=== PATIENT | male | born 1960 | race Caucasian/White ===

== ENCOUNTER → 2018-01-29 | Outpatient (CLI) | payer OTHER ==
[~2018-01-29] MED LIST: ASPEC325; MULT-506; OMEG10007
[2018-01-29 12:12] LABS: BASO % 0.4 %; BASO ABS # 0.03 K/uL (0-0.2); EOS % 3.7 %; EOS ABS # 0.26 K/uL (0-0.5); HEMATOCRIT 43.4 % (42-52); HEMOGLOBIN 15.7 g/dL (14.0-18.0); IG# 0.01 K/uL (0.00-0.02); LYMPH % 25.5 %; LYMPH ABS # 1.77 K/uL (1.2-3.4); MEAN CELL VOLUME 84.9 fL (80-100); MEAN CORPUSCULAR HEMOGLOBIN 30.7 pg (25-34); MEAN CORPUSCULAR HGB CONC 36.2 g/dl (32-36); MEAN PLATELET VOLUME 8.8 fL (7.4-10.4); MONO % 5.2 %; MONO ABS # 0.36 K/uL (0.11-0.59); NEUT % 65.1 %; NEUT ABS # 4.52 K/uL (1.4-6.5); PLATELET COUNT 361 K/uL (130-400); RED CELL DISTRIBUTION WIDTH CV 12.6 % (11.5-14.5); RED CELL DISTRIBUTION WIDTH SD 38.8 fL (36.4-46.3); WHITE BLOOD COUNT 6.95 K/uL (4.8-10.8)
[2018-01-29 16:45] LABS: ALT/SGPT 42 U/L (12-78); AST/SGOT 20 U/L (15-37); BLOOD UREA NITROGEN 24 mg/dl (7-18); CALCIUM 9.2 mg/dl (8.5-10.1); CARBON DIOXIDE 29 mmol/L (21-32); CHOLESTEROL 181 mg/dl (0-200); CREATININE 1.04 mg/dl (0.60-1.40); GLUCOSE 88 mg/dl (70-99); POTASSIUM 4.3 mmol/L (3.5-5.1); SODIUM 142 mmol/L (136-145)
[2018-01-29 16:49] LABS: ALKALINE PHOSPHATASE 80 U/L (45-117); LDL CHOLESTEROL CALCULATED 114 mg/dl; TOTAL PROTEIN 7.5 gm/dl (6.4-8.2)
== END | disposition home or self-care (01) ==
LOC: C.LABBFT 10:47
PROVIDERS: ATTEND Internal Medicine
DX: E78.00 Pure hypercholesterolemia, unspecified (principal); Z12.5 Encounter for screening for malignant neoplasm of prostate; I10 Essential (primary) hypertension

== ENCOUNTER 2019-06-19 08:31 | Inpatient (IN) ==
[2019-06-19] MEDS ORDERED: ADENOSINE IV SOLN 3 MG/ML 2 ML VIAL IV ONE ×3 (08:41→09:08)
[2019-06-19] MEDS ORDERED: SODIUM CHLORIDE 0.9% 1000ML 1,000 ML IV SCH (08:45)
[2019-06-19 08:59] LABS: Basophils # (auto) 0.02 K/uL (0-0.2); Basophils % (auto) 0.2 %; Eosinophils # (auto) 0.05 K/uL (0-0.5); Eosinophils % (auto) 0.4 %; Hematocrit (blood only) 44.5 % (42-52); Hemoglobin 15.7 g/dL (14.0-18.0); Immature Granulocytes # (auto) 0.03 K/uL (0.00-0.02); Immature Granulocytes % (auto) 0.2 %; Lymphocytes # (auto) 2.77 K/uL (1.2-3.4); Lymphocytes % (auto) 22.7 %; Mean Corpuscular Hemoglobin 30.9 pg (25-34); Mean Corpuscular Hgb Conc 35.3 g/dL (32-36); Mean Corpuscular Volume 87.6 fL (80-100); Mean Platelet Volume 9.1 fL (7.4-10.4); Monocytes # (auto) 0.85 K/uL (0.11-0.59); Neutrophils # (auto) 8.49 K/uL (1.4-6.5); Neutrophils % (auto) 69.5 %; Platelet Count 346 K/uL (130-400); RDW Coefficient of Variation 13.1 % (11.5-14.5); RDW Standard Deviation 41.8 fL (36.4-46.3); Red Blood Count 5.08 M/uL (4.7-6.1); White Blood Count 12.21 K/uL (4.8-10.8)
[2019-06-19 09:10] LABS: INR 1.1 (0.9-1.1); Partial Thromboplastin Time 25.8 Seconds (21.0-31.0); Prothrombin Time 11.1 Seconds (9.0-12.0)
[2019-06-19 09:16] LABS: BUN Creatinine Ratio 26.1 (10-20); Calcium 9.7 mg/dl (8.5-10.1); Est GFR (Non-African American) 45.8; Potassium 5.3 mmol/L (3.5-5.1)
[2019-06-19] MEDS ORDERED: dilTIAZem HCl 125 MG in DEXTROSE 5% 100 ML IV SCH (09:30)
[2019-06-19 09:35] LABS: Albumin Globulin Ratio 1.1 (0.9-2); Bilirubin,Total 1.2 mg/dl (0.2-1); Globulin 3.5 gm/dl (2.5-4.0); Thyroid Stimulating Hormone 4.2 uIu/ml (0.300-4.500); Total Protein 7.5 gm/dl (6.4-8.2); Troponin I 0.137 ng/ml (0-0.045)
[2019-06-19] MEDS ORDERED: SODIUM CHLORIDE 0.9% 1000ML 500 ML IV ONE (09:48)
--- NOTE | 2019-06-19 09:53 | XRay Report ---
XR chest 1V portable CLINICAL HISTORY: Chest Pain COMPARISON STUDY: No previous studies for comparison. FINDINGS: Lung volumes are normal. There is no pneumothorax or pleural effusion. There is no consolid ation or evidence for pulmonary edema. There is mild cardiomegaly. Patient is mildly rotated. IMPRESSION: 1. No acute cardiopulmonary findings. 2. Mild cardiomegaly. Electronically signed by: Jarad Higgins M.D. 06/19/2019 9:51 AM
[2019-06-19] MEDS ORDERED: Heparin IV Standard *NO* Bolus IV ONE (10:22)
--- NOTE | 2019-06-19 10:59 | Emergency Department Note ---
Entered by Nicole Georges acting as a scribe for Meng Groves DO History of Present Illness General Chief complaint: Chest Pain Stated complaint: HEART THROBBING- SWEATS Time Seen by Provider: 06/19/19 08:43 Source: patient History of Present Illness Onset (ago): day(s) (last night) Location: chest Pain Consistency: + other (episode) Quality: + other (tightness) Associated symptoms: + denies other symptoms (significant chest pain) and + other (racing heart rate, diaphoresis) The patient is a 58 year old male that is presenting to the Emergency Room with complaints of an episode of chest tightness with a racing heart rate and diaphoresis that started yesterday evening. He denies any significant chest pain at this time. He notes that he takes Omeprazole, Simvastatin, and Losartan regularly. The patient reports that he has had several similar episodes over the past year but denies being followed by a provider for his symptoms. He states that the first episode started after he was cleaning out chlorine from a screen from a vacuum pump. The patient reports that he has had surgery on his bilateral hands and on his ankle. 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 He states that he was able to bring himself to the ED today. Home Medications Home Medications Medication Instructions Recorded Confirmed Type aspirin 325 mg tablet 325 mg PO QAM tab 03/12/19 06/19/19 History omeprazole 20 mg capsule,delayed 20 mg PO QAM cap 03/12/19 06/19/19 History release simvastatin 40 mg tablet 40 mg PO QAM #90 tab 03/12/19 06/19/19 History losartan 25 mg PO QAM 06/19/19 06/19/19 History multivitamin 1 tab PO DAILY 06/19/19 06/19/19 History omega [id number] oil [Fish Oil] 1 cap PO QAM 06/19/19 06/19/19 History Allergies Allergy/AdvReac Type Severity Reaction Status Date / Time Penicillins Allergy Mild Verified 06/19/19 10:07 COURTNEY Inhibitors Allergy Verified 06/19/19 10:07 Past Med/Surg History Medical History Shingles (Acute) Rising PSA level (Acute) Palpitations (Acute) Hypertension (Acute) Hypercholesterolemia (Acute) Family History Other No significant family history Social History Preferred Language: Egyptian Communication Ability: Effective Beliefs That Will Affect Care: None Current Living Situation: Spouse Feels Safe at Home: Yes Smoking Status: Never smoker Hx Alcohol Use: No Hx Substance Use: No Review of Systems See HPI for pertinent positives & negatives. and A total of 10 systems reviewed and were otherwise negative Physical Exam Vital Signs Vital Signs - 24 hr 06/19/19 08:37 06/19/19 08:40 06/19/19 08:54 Sepsis Recent Fever Within 48 Hours No Sepsis Action Taken by Nursing No Action Required Pulse Rate 205 H 203 H Pulse Rate from SpO2 Sensor 201 H Respiratory Rate 19 11 L Respiratory Effort / Characteristics Non-Labored Spontaneous Respiratory Depth Normal Blood Pressure 111/76 106/75 Blood Pressure Mean 87 85 Blood Pressure Position Sitting Pulse Oximetry 98 98 97 Oxygen Delivery Method Room Air Room Air Nasal Cannula Oxygen Flow Rate 100 06/19/19 08:55 06/19/19 09:01 06/19/19 09:15 Sepsis Recent Fever Within 48 Hours Sepsis Action Taken by Nursing Pulse Rate 205 H 206 H Pulse Rate from SpO2 Sensor 205 H 203 H Respiratory Rate 12 15 Respiratory Effort / Characteristics Respiratory Depth Blood Pressure 116/67 102/77 Blood Pressure Mean 83 85 Blood Pressure Position Pulse Oximetry 100 99 99 Oxygen Delivery Method Nasal Cannula Nasal Cannula Nasal Cannula Oxygen Flow Rate 2 2 2 06/19/19 09:30 06/19/19 09:46 06/19/19 10:03 Sepsis Recent Fever Within 48 Hours Sepsis Action Taken by Nursing Pulse Rate 208 H 209 H 111 H Pulse Rate from SpO2 Sensor 207 H Respiratory Rate 12 20 18 Respiratory Effort / Characteristics Respiratory Depth Blood Pressure 108/75 106/79 123/97 Blood Pressure Mean 86 88 105 Blood Pressure Position Pulse Oximetry 98 98 95 Oxygen Delivery Method Nasal Cannula Nasal Cannula Nasal Cannula Oxygen Flow Rate 2 06/19/19 10:14 06/19/19 10:16 06/19/19 10:30 Sepsis Recent Fever Within 48 Hours Sepsis Action Taken by Nursing Pulse Rate 115 H 115 H 117 H Pulse Rate from SpO2 Sensor 116 H 115 H Respiratory Rate 24 21 22 Respiratory Effort / Characteristics Respiratory Depth Blood Pressure 116/88 119/80 Blood Pressure Mean 97 93 Blood Pressure Position Pulse Oximetry 96 97 Oxygen Delivery Method Room Air Oxygen Flow Rate 06/19/19 10:35 06/19/19 10:45 06/19/19 11:00 Sepsis Recent Fever Within 48 Hours Sepsis Action Taken by Nursing Pulse Rate 118 H 118 H Pulse Rate from SpO2 Sensor Respiratory Rate 18 21 Respiratory Effort / Characteristics Respiratory Depth Blood Pressure 117/84 Blood Pressure Mean 95 Blood Pressure Position Pulse Oximetry Oxygen Delivery Method Room Air Oxygen Flow Rate GENERAL: Patient is awake and alert. Patient is anxious appearing but seems comfortable. EYES: The conjunctivae are clear. The pupils are round and reactive. EARS, NOSE, MOUTH AND THROAT: The nose is without any evidence of any deformity. Mucous membranes are moist.Tongue is midline NECK: The neck is nontender and supple. RESPIRATORY: Normal respiratory effort is noted. There is no evidence of wheezing rhonchi or rales to auscultation. CARDIOVASCULAR: Tachycardic rate and regular rhythm noted. No definite murmur noted. GASTROINTESTINAL: The abdomen is soft. Bowel sounds are present in all quadrants. Abdomen is nontender. MUSCULOSKELETAL/EXTREMITIES: There is no evidence of gross deformity. Full range of motion is noted in the hips and shoulders. SKIN: There is no obvious evidence of any rash. There are no petechiae, pallor or cyanosis noted. NEUROLOGIC: Patient is awake alert and oriented x3. Course 0842:The patient was evaluated in room B01. A complete history and physical ex amination was performed. Multiple attempts were made for modified Valsalva without relief of his SVT. The patient was given Adenosine without a significant drop in his heart rate. 1013: I discussed the patient's case with Dr. Anton [facility], who recommended that the patient be kept for observation in the hospital and that he be started on a Heparin drip. 1031: I discussed the patient's case with Dr. Aliya Pollard [facility], who will evaluate the patient for further management and care. 1035: Upon reevaluation, the patient is resting comfortably. I discussed laboratory and radiographic results with the patient. He verbalized agreement of the treatment plan. The patient will be evaluated for further management and care. Consultations Consultation #1: I discussed the patient's case with Dr. Anton [facility], who recommended that the patient be kept for observation in the hospital and that he be started on a Heparin drip. Time: 10:13 Consultation #2: I discussed the patient's case with Dr. Aliya Pollard [facility], who will evaluate the patient for further management and care. Time: 10:31 Administered Medications Atorvastatin Calcium (Lipitor) 40 mg PO QAM LEO Stop: 07/19/19 11:14 Last Admin: 06/19/19 13:54 Dose: 40 mg Documented by: [id number] Diltiazem HCl 125 mg/ Dextrose 125 mls @ 0 mls/hr IV .Q0M LEO; Protocol Stop: 07/19/19 09:29 Last Titration: 06/19/19 18:42 Dose: 0 mg/hr, 0 mls/hr Documented by: [id number] Cosigned by: [id number] Titration: 06/19/19 14:56 Dose: 5 mg/hr, 5 mls/hr Documented by: [id number] Cosigned by: [id number] Titration: 06/19/19 11:30 Dose: 5 mg/hr, 5 mls/hr Documented by: [id number] Titration: 06/19/19 10:01 Dose: 15 mg/hr, 15 mls/hr Documented by: [id number] Titration: 06/19/19 09:50 Dose: 10 mg/hr, 10 mls/hr Documented by: [id number] Admin: 06/19/19 09:28 Dose: 5 mg/hr, 5 mls/hr Documented by: [id number] Cosigned by: [id number] Heparin Sodium/Dextrose (Heparin Sodium/Dextrose) 25,000 units in 500 mls @ 39 mls/hr IV .[id number] LEO; Protocol Stop: 07/19/19 10:29 Last Titration: 06/20/19 02:13 Dose: 1,750 units/hr, 35 mls/hr Documented by: [id number] Cosigned by: [id number] Titration: 06/20/19 00:58 Dose: 0 units/hr, 0 mls/hr Documented by: [id number] Cosigned by: [id number] Admin: 06/20/19 00:55 Dose: 39 units/hr, 0.8 mls/hr Documented by: [id number] Cosigned by: [id number] Titration: 06/20/19 00:54 Dose: 0 units/hr, 0 mls/hr Documented by: [id number] Cosigned by: [id number] Titration: 06/19/19 19:00 Dose: 1,950 units/hr, 39 mls/hr Documented by: [id number] Cosigned by: [id number] Titration: 06/19/19 17:58 Dose: 1,950 units/hr, 39 mls/hr Documented by: [id number] Cosigned by: [id number] Titration: 06/19/19 14:55 Dose: 1,600 units/hr, 32 mls/hr Documented by: [id number] Cosigned by: [id number] Admin: 06/19/19 11:05 Dose: 1,600 units/hr, 32 mls/hr Documented by: [id number] Cosigned by: [id number] Sodium Chloride (Nss 1000ml) 1,000 mls @ 75 mls/hr IV .[id number] [facility] Stop: 07/19/19 11:14 Last Admin: 06/20/19 01:55 Dose: 75 mls/hr Documented by: [id number] Infusion: 06/20/19 01:55 Dose: 0 mls/hr Documented by: [id number] Admin: 06/19/19 13:58 Dose: 75 mls/hr Documented by: [id number] Metoprolol Tartrate (Lopressor) 25 mg PO BID [facility] Stop: 07/19/19 11:14 Last Admin: 06/19/19 13:54 Dose: 25 mg Documented by: [id number] Pantoprazole Sodium (Protonix) 40 mg PO DAILY [facility] Stop: 07/19/19 11:59 Last Admin: 06/19/19 13:55 Dose: 40 mg Documented by: [id number] Discontinued Medications Adenosine (Adenosine) Confirm Administered Dose 18 mg IV .STK-MED ONE Stop: 06/19/19 08:42 Last Admin: 06/19/19 08:53 Dose: 18 mg Documented by: [id number] Adenosine (Adenosine) Confirm Administered Dose 12 mg IV .STK-MED ONE Stop: 06/19/19 09:04 Last Admin: 06/19/19 09:05 Dose: 12 mg Documented by: [id number] Adenosine (Adenosine) Confirm Administered Dose 24 mg IV .STK-MED ONE Stop: 06/19/19 09:09 Last Admin: 06/19/19 09:11 Dose: 24 mg Documented by: [id number] Heparin Sodium/Dextrose () 1 ea IV ONE ONE; Protocol Stop: 06/19/19 10:23 Last Admin: 06/19/19 13:58 Dose: 1 ea Documented by: [id number] Sodium Chloride (Nss 1000ml) 1,000 mls @ 999 mls/hr IV .Q1H1M LEO Stop: 06/19/19 09:45 Last Infusion: 06/19/19 09:41 Dose: 0 mls/hr Documented by: [id number] Admin: 06/19/19 08:40 Dose: 999 mls/hr Documented by: [id number] Sodium Chloride (Nss 1000ml) 500 mls @ 999 mls/hr IV .Q31M ONE Stop: 06/19/19 10:18 Last Infusion: 06/19/19 10:21 Dose: 0 mls/hr Documented by: [id number] Admin: 06/19/19 09:50 Dose: 999 mls/hr Documented by: [id number] Heparin Sodium (Porcine) 7,000 (units/ Syringe) 7 mls @ 10 mls/min IV 1830 ONE Stop: 06/19/19 18:31 Last Admin: 06/19/19 18:41 Dose: 10 mls/min Documented by: [id number] Cosigned by: [id number] Metoprolol Tartrate (Lopressor) 12.5 mg PO 2100 ONE Stop: 06/19/19 21:01 Last Admin: 06/19/19 20:25 Dose: 12.5 mg Documented by: [id number] Medical Decision Making Differential Diagnosis Differential diagnosis: Etiologies such as cardiac ischemia, aortic dissection, pulmonary embolism, p neumonia, pneumothorax, musculoskeletal, infections, pericarditis, myocarditis, esophageal rupture, gastrointestinal, as well as others were entertained. Medical Records Attestation: I reviewed the patient's medical records. Home Medications Current Medication List: was personally reviewed by me Laboratory Data Attestation: I reviewed the patient's lab results. Result diagrams: 06/20/19 05:19 06/20/19 05:19 Lab Results 06/19/19 06/19/19 06/19/19 Range/Units 09:45 09:45 09:45 WBC 12.21 H (4.8-10.8) K/uL RBC 5.08 (4.7-6.1) M/uL Hgb 15.7 (14.0-18.0) g/dL Hct 44.5 (42-52) % MCV 87.6 (80-100) fL MCH 30.9 (25-34) pg MCHC 35.3 (32-36) g/dL RDW Std Deviation 41.8 (36.4-46.3) fL RDW Coeff of Silver 13.1 (11.5-14.5) % Plt Count 346 (130-400) K/uL MPV 9.1 (7.4-10.4) fL Immature Gran % (Auto) 0.2 % Neut % (Auto) 69.5 % Lymph % (Auto) 22.7 % Gray % (Auto) 7.0 % Eos % (Auto) 0.4 % Baso % (Auto) 0.2 % Immature Gran # (Auto) 0.03 H (0.00-0.02) K/uL Neut # (Auto) 8.49 H (1.4-6.5) K/uL Lymph # (Auto) 2.77 (1.2-3.4) K/uL Gray # (Auto) 0.85 H (0.11-0.59) K/uL Eos # (Auto) 0.05 (0-0.5) K/uL Baso # (Auto) 0.02 (0-0.2) K/uL PT 11.1 (9.0-12.0) Seconds INR 1.1 (0.9-1.1) APTT 25.8 (21.0-31.0) Seconds PTT Ratio 1.0 Sodium 139 (136-145) mmol/L Potassium 5.3 H (3.5-5.1) mmol/L Chloride 106 (98-107) mmol/L Carbon Dioxide 25 (21-32) mmol/L Anion Gap 8.0 (3-11) BUN 43 H (7-18) mg/dl Creatinine 1.63 H (0.6-1.4) mg/dl Est Cr Clr Drug Dosing 63.0 ml/min Est GFR ( Amer) 53.0 Est GFR (Non-Af Amer) 45.8 BUN/Creatinine Ratio 26.1 H (10-20) Glucose 141 H (70-99) mg/dl Estimat Average Glucose mg/dl Hemoglobin A1c (4.5-5.6) % Calcium 9.7 (8.5-10.1) mg/dl Magnesium (1.8-2.4) mg/dl Total Bilirubin 1.2 H (0.2-1) mg/dl AST 34 (15-37) U/L ALT 62 (12-78) U/L Alkaline Phosphatase 79 (45-117) U/L Troponin I 0.137 H* (0-0.045) ng/ml Total Protein 7.5 (6.4-8.2) gm/dl Albumin 4.0 (3.4-5.0) gm/dl Globulin 3.5 (2.5-4.0) gm/dl Albumin/Globulin Ratio 1.1 (0.9-2) Lipase 111 (73-393) U/L TSH 4.200 (0.300-4.500) uIu/ml 06/19/19 06/19/19 Range/Units 09:45 09:45 WBC (4.8-10.8) K/uL RBC (4.7-6.1) M/uL Hgb (14.0-18.0) g/dL Hct (42-52) % MCV (80-100) fL MCH (25-34) pg MCHC (32-36) g/dL RDW Std Deviation (36.4-46.3) fL RDW Coeff of Silver (11.5-14.5) % Plt Count (130-400) K/uL MPV (7.4-10.4) fL Immature Gran % (Auto) % Neut % (Auto) % Lymph % (Auto) % Gray % (Auto) % Eos % (Auto) % Baso % (Auto) % Immature Gran # (Auto) (0.00-0.02) K/uL Neut # (Auto) (1.4-6.5) K/uL Lymph # (Auto) (1.2-3.4) K/uL Gray # (Auto) (0.11-0.59) K/uL Eos # (Auto) (0-0.5) K/uL Baso # (Auto) (0-0.2) K/uL PT (9.0-12.0) Seconds INR (0.9-1.1) APTT (21.0-31.0) Seconds PTT Ratio Sodium (136-145) mmol/L Potassium (3.5-5.1) mmol/L Chloride (98-107) mmol/L Carbon Dioxide (21-32) mmol/L Anion Gap (3-11) BUN (7-18) mg/dl Creatinine (0.6-1.4) mg/dl Est Cr Clr Drug Dosing ml/min Est GFR ( Amer) Est GFR (Non-Af Amer) BUN/Creatinine Ratio (10-20) Glucose (70-99) mg/dl Estimat Average Glucose 117 mg/dl Hemoglobin A1c 5.7 H (4.5-5.6) % Calcium (8.5-10.1) mg/dl Magnesium 2.5 H (1.8-2.4) mg/dl Total Bilirubin (0.2-1) mg/dl AST (15-37) U/L ALT (12-78) U/L Alkaline Phosphatase (45-117) U/L Troponin I (0-0.045) ng/ml Total Protein (6.4-8.2) gm/dl Albumin (3.4-5.0) gm/dl Globulin (2.5-4.0) gm/dl Albumin/Globulin Ratio (0.9-2) Lipase (73-393) U/L TSH (0.300-4.500) uIu/ml Imaging Data Radiologist's Impression: Radiology results as stated below per my review and the radiologist's interpretation: XR chest 1V portable CLINICAL HISTORY: Chest Pain COMPARISON STUDY: No previous studies for comparison. FINDINGS: Lung volumes are normal. There is no pneumothorax or pleural effusion. There is no consolidation or evidence for pulmonary edema. There is mild cardiomegaly. Patient is mildly rotated. IMPRESSION: 1. No acute cardiopulmonary findings. 2. Mild cardiomegaly. Electronically signed by: Jarad Higgins M.D. 06/19/2019 9:51 AM ECG Data Attestation: I personally reviewed and interpreted this ECG as follows: Indication: chest pain Rate (beats per minute): 208 Rhythm: sinus tachycardia (narrow complex) Findings: + other (low voltage throughout) and + ST depression (Inferior, lateral) Comparison ECG Date: from (06/26/06) Change: the following changes noted (ST depressions are new) Additional Comments: REPEAT EKG: Atrial flutter at a rate of [address] depressions persist from earlier EKG. Repeat EKG: Sinus rhythm at 72 bpm. PVCs were noted. Anterior and lateral T wave inversions with ST segment depressions noted. Sinus rhythm has replaced rapid atrial flutter compared to earlier tracing. Ischemic changes still persist. Blood Pressure Blood Pressure Findings: Elevated blood pressure Blood Pressure Disposition: further management by hospitalist OSWALDO Narrative The patient is a 58-year-old male who presented to the emergency department for an evaluation of chest heaviness and palpitations. The patient was found to be in narrow complex tachycardia at approximately 200 bpm. The patient initially was treated with IV fluids and Valsalva maneuver. This did not resolve the narrow complex tachycardia. The patient was further treated with IV fluids. The patient was finally treated with multiple doses of IV adenosine. On the final dose of adenosine which was 24 mg he did break to what appeared to be a atrial fibrillation/flutter pattern. He also had multiple PVCs at that time. After this the patient was started on a Cardizem drip. His rate improved significantly but he continued to have ischemic changes on EKG. He also had an elevated troponin. I discussed the patient's laboratory and radiographic studies with him. He was feeling much better. I discussed his case with the on-call [facility] fishery biologist. The patient was started on a heparin drip as well as a Cardizem drip. I discussed his case with the on-call [facility] hospitalist group. They have agreed to evaluate the patient in the emergency department for further management disposition. The patient was reevaluated multiple times. Impression & Plan Atrial flutter with rapid ventricular response, Elevated troponin, Acute kidney injury, Abnormal ECG Critical Care Time Critical Care Time: Yes Total Critical Care Time: 60 I have personally spent 60 minutes of critical care time in the direct ma nagement of this patient. This includes bedside care, interpretation of diagnostic studies, and testing, discussion with consultants, patient, and family members, and other required patient management activities. This 60 minutes is in excess of all separately billable procedures. Discharge Plan Visit Data *Final* Discharge Date/Time: 06/19/19 12:54 Chief Complaint: Chest Pain Stated Complaint: HEART THROBBING- SWEATS ED Provider: Meng Groves Discharge Problem: Atrial flutter with rapid ventricular response, Elevated troponin, Acute kidney injury, Abnormal ECG Patient Disposition: Home - Self-Care Discharge Instructions Interventions: ED Discharge Assessment Last Done: 06/19/19 12:54 The jaswantibe's documentation has been prepared under my direction and personally reviewed by me in its entirety. I confirm that the note above accurately refle cts all work, treatment, procedures, and medical decision making performed by me.
[2019-06-19] MEDS: HEPARIN SODIUM/DEXTROSE 25,000 UNITS/500 ML BAG IV SCH (11:05)
[2019-06-19] MEDS ORDERED: POLYETHYLENE (MIRALAX) 17 GM PACK PO PRN (11:07)
[2019-06-19] MEDS ORDERED: MAGNESIUM HYDROXIDE SUSP 30 ML UDC PO PRN (11:07)
[2019-06-19] MEDS ORDERED: ZOLPIDEM TARTRATE 5 MG TAB PO PRN (11:07)
[2019-06-19] MEDS ORDERED: ALUMINUM/MAGNESIUM SUSP 30 ML UDC PO PRN (11:07)
[2019-06-19] MEDS ORDERED: ACETAMINOPHEN 325 MG TAB PO PRN (11:07)
[2019-06-19] MEDS ORDERED: NITROGLYCERIN SL 0.4 MG/TAB TAB SL PRN (11:07)
[2019-06-19] MEDS ORDERED: HEPARIN SODIUM/DEXTROSE 25,000 UNITS/500 ML BAG IV SCH (11:15)
--- NOTE | 2019-06-19 11:31 | History & Physical Report ---
Date of Service June 19, 2019 Assessment & Plan (1) Atrial flutter with rapid ventricular response: Admit patient to PCU Vitals per protocol Continue Cardizem drip Lopressor 25 mg p.o. twice daily, also losartan will be held due to acute kidney injury Order 2D echo Due to his body habitus and his consistent story obstructive sleep apnea, will order nocturnal pulse ox while he is at the hospital in room air, patient also was instructed to do a sleep study as an outpatient We will check lipid panel and hemoglobin A1c to stratify his risk factors Giving his very high conduction rate very high rhythm on admissions with a heart rate more than 200 bpm that affected his kidney and possible his liver, suggest more conservative management by keeping him until at least Friday where he can be seen by EP and possibly have ablation done prior to discharge Consult silk weaver Dr. Hopkins kindly came and evaluated the patient, recommended consultation for EP for possible ablation (2) Elevated troponin: Likely demand ischemia Since he will be on heparin drip, will hold aspirin for now We will order serial troponin Coronary artery disease is suspected he can restart aspirin again. He already took 1 baby aspirin for today (3) Acute kidney injury: Likely secondary to lack of perfusion, Hold losartan Normal saline at 75 cc/h Repeat renal function in a.m. Repeat potassium level at 2 PM as it was borderline high (4) Hypertension: Used to be on losartan, given his acute kidney injury and elevated potassium hold losartan Started him on Lopressor 25 mg twice daily first dose now (5) Hypercholesterolemia: He was on simvastatin that interacts with Cardizem Ordered lipids panel Switch simvastatin to Lipitor Discussed with patient History of Present Illness 58 years old man with past medical history of dyslipidemia, hypertension and obesity presented to the hospital with acute onset palpitation, chest tightness, diaphoresis associated with shortness of breath that happened last night. Patient said that for the last 3 to 4 months he has been having intermittent episodes of palpitation associated with chest tightness and shortness of breath usually lasts for 1 or 2 hours and then goes away. He never tried to seek medical attention for. He has a strong family history of heart disease from his father's side. 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 On arrival to the ED today because his palpitation lasted longer than usual was found to have a heart rate of 200 irregular irregularity, failed to control with adenosine and then finally improved with the Cardizem drip. EKG after lowering the heart rate showed atrial flutter with variable AV block and some ST depressions. His troponin was 0.13, creatinine jumped from baseline normal to 1.6. Currently his symptoms all resolved after lowering his heart rate, patient will be admitted for further evaluation and management Primary Care Provider: Bam Guerrier MD Allergies Allergy/AdvReac Type Severity Reaction Status Date / Time Penicillins Allergy Mild Verified 06/19/19 10:07 COURTNEY Inhibitors Allergy Verified 06/19/19 10:07 Home Medications Home Medications Medication Instructions Recorded Confirmed Type aspirin 325 mg tablet 325 mg PO QAM tab 03/12/19 06/19/19 History omeprazole 20 mg capsule,delayed 20 mg PO QAM cap 03/12/19 06/19/19 History release simvastatin 40 mg tablet 40 mg PO QAM #90 tab 03/12/19 06/19/19 History losartan 25 mg PO QAM 06/19/19 06/19/19 History multivitamin 1 tab PO DAILY 06/19/19 06/19/19 History omega 6-ndt-fvd-fish oil [Fish Oil] 1 cap PO QAM 06/19/19 06/19/19 History Past Med/Surg History Medical History Shingles (Acute) Rising PSA level (Acute) Palpitations (Acute) Hypertension (Acute) Hypercholesterolemia (Acute) Family History Other No significant family history Social History Preferred Language: Estonian Communication Ability: Effective Beliefs That Will Affect Care: None Current Living Situation: Spouse Other Information That Helps Us Care for You: No Feels Safe at Home: Yes Safety Concerns: Feels Safe At This Time Smoking Status: Never smoker Hx Alcohol Use: No Hx Substance Use: No Review of Systems Review of Systems: Review of system Constitutional: No fever / no chills / no sweats /after if the episodes of palpitation he gets severely fatigued and weak Eyes: no blurring of vision / no eye pain / no discharge / no redness ENT: no hearing loss / no epistaxis /no swallowing problems Respiratory: no cough / no wheezing / no SOB / no hemoptysis Cardiovascular: Chest tightness or palpitation Abdomen: no pain / no nausea / no vomiting / no constipation Musculoskeletal: no joint pain / no muscle pain / no joint swelling Genitourinary: no dysuria / no incontinence / no urinary retention Neurologic: no focal weakness / no numbness/tingling / no ataxia Psychiatric: no depression symptoms / no anxiety / no insomnia Endocrine: no excessive thirst / no excessive urination Hematologic: no abnormal bleeding / no bruising / no LN swelling Skin: No rash / no pallor Physical Exam Physical Exam: Physical examination General patient is obese appears to be comfortable, not in acute distress HEENT: Atraumatic , normocephalic /no jaundice /no pallor /anicteric /no dry mucous membrane /normal external ear inspection Neck: Supple /no swelling /central trach Heart: irregular irregularity/no gallop /no rub /no murmur Lungs: Clear to auscultation bilaterally/normal chest with expansion/no rhonchi/no rales/no wheezing/no use of accessory muscles of respiration Abdomen: Soft/nontender/no guarding/no rebound/no organomegaly/no pulsatile mass Musculoskeletal: No swelling/no edema/no tenderness/normal range of motion Neuro exam: Awake alert oriented 3/cranial nerves II through XII appear to be intact/sensation intact/moves all extremities/no abnormal movements Psychiatric evaluation: No depressed mood/normal affect Skin: No rash on exposed skin area/no erythema Extremity: Normal pulse/no pitting edema/no clubbing or cyanosis Endocrine/lymphatic: No obvious lymphadenopathy /no lymphedema Results & Data Vital Signs (Past 12 Hours) Vital Signs Pulse Resp BP Pulse Ox 06/19/19 10:14 115 H 24 116/88 96 06/19/19 10:03 111 H 18 123/97 95 06/19/19 09:46 209 H 20 106/79 98 06/19/19 09:30 208 H 12 108/75 98 06/19/19 09:15 206 H 15 102/77 99 06/19/19 09:01 205 H 12 116/67 99 06/19/19 08:55 100 06/19/19 08:54 203 H 11 L 106/75 97 06/19/19 08:40 98 06/19/19 08:37 205 H 19 111/76 98 Code Status & VTE Plan VTE Prophylaxis Plan VTE Prophylaxis will be ordered: No PG Care Time/CCT Total # of Minutes Spent Total Time Spent with Patient: 35 minutes total time spent is greater than 50% in coordination of care (as documented) at patient's floor/unit and/or counseling patient/family discussion of care with nursing staff
[2019-06-19 11:55] LABS: Estimated Average Glucose 117 mg/dl; Hemoglobin A1C 5.7 % (4.5-5.6)
[2019-06-19] MEDS: METOPROLOL TARTRATE 25 MG TAB PO SCH (13:54)
[2019-06-19] MEDS: ATORVASTATIN 40 MG TAB PO SCH (13:54)
[2019-06-19] MEDS: PANTOprazole 40 MG TAB PO SCH (13:55)
[2019-06-19] MEDS: SODIUM CHLORIDE 0.9% 1000ML 1,000 ML IV SCH (13:58)
--- NOTE | 2019-06-19 14:24 | Cardiology Consultation ---
Date of Consultation June 19, 2019 Assessment & Plan (1) Atrial flutter with rapid ventricular response: Has been having symptoms since January but now documented atrial flutter with rapid ventricular response, possibly 1-1 conduction with heart rates greater than 200 bpm. Currently in sinus rhythm after spontaneously resolving while on diltiazem drip. 25 mg twice daily. Can discontinue diltiazem drip while in sinus. Discussed diagnosis and treatment strategy. Would consider EP zen luation for consideration of ablation which was discussed with him today. Otherwise, would consider anti rhythmic therapy given the fact that he has recurrent episodes which appear quite distressing with very elevated heart rates demonstrated today. Agree with anticoagulation for stroke risk reduction. Would consider Eliquis on discharge. For now, he is on heparin drip. (2) Elevated troponin: Likely secondary to prolonged tachyarrhythmia from demand ischemia. Trend troponins until peaked. If become significantly elevated, may pursue further evaluation. (3) Hypertension: Blood pressure adequately controlled. (4) Hypercholesterolemia: Can continue statin therapy. (5) Chest pain: Likely secondary to atrial flutter with rapid ventricular response but would still recommend trend troponin levels. He otherwise has not been experiencing exertional chest discomfort despite active lifestyle. Acute renal insufficiency: As per primary service. May be due to prolonged tachyarrhythmia. Losartan is being held by primary service. Disposition: Cardiology will continue to follow. Plan of care discussed with admitting physician, Dr. Aliya Pollard. Thank you for allowing me to participate in the care of your patient. Please call for any other questions or concerns. Sincerely, Trevor Anton M.D. History of Present Illness Reason for Consultation: Atrial flutter with RVR Requesting Physician: Dr. Aliya Pollard Attending Physician: Fito Pollard MD History of Present Illness Mr. Valenzuela is a very pleasant 58-year-old gentleman with a history significant for hypertension and dyslipidemia who presented [facility] with palpitations. He has been experiencing palpitations since January of 2019. Palpitations are described as a thumping sensation. His first episode in January was also accompanied by a drenching diaphoresis. Since then, he has mild diaphoresis with palpitations. His first episode lasted approximately 2 hours before spontaneously resolving. On average she has 1 episode per month. When palpitations subside, he feels a shocking sensation that goes down through his chest and then palpitations resolved. He typically feels wiped out after an episode. Yesterday at some point throughout the day he developed palpitations. He cannot recall the exact time has he was quite busy. Palpitations were accompanied by shortness of breath and also substernal chest tightness that persisted all night. Because of the palpitations, he was unable to sleep. When he came to the emergency department today, he was found to have a tachyarrhythmia with narrow complex. He was given IV fluids and Valsalva maneuver was attempted but narrow complex tachycardia persisted. He was then given multiple doses of intravenous adenosine. The final dose of adenosine was 24 mg which reportedly demonstrated atrial flutter. He was then placed on a diltiazem drip. His initial troponin was elevated at 0.137. Dr. Groves of the emergency departmentcontacted me via telephone. It was recommended that a heparin drip initiated at that he Re admitted. He was found to be hyperkalemic with a potassium of 5.3 and also had elevated BUN and creatinine levels compared to his baseline. When I presented to the bedside to evaluate him, he had already converted to sinus rhythm and palpitations have subsided. He was chest pain-free and was not short of breath. He has not had any recent fevers, melena, hematochezia, hematuria, edema, stroke, stroke-like symptoms, syncope, near-syncope, nausea, or vomiting. Review of systems: As above. Review of systems otherwise negative/unremarkable. Family history: Father had [place] in his 40s. Social history: Denies smoking, alcohol, or drug abuse. He lives at home with his , daughter, and 2 grandsons. He has 4 children. 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 He was unaccompanied. Allergies Allergy/AdvReac Type Severity Reaction Status Date / Time Penicillins Allergy Mild Verified 06/19/19 10:07 COURTNEY Inhibitors Allergy Verified 06/19/19 10:07 Home Medications Home Medications Medication Instructions Recorded Confirmed Type aspirin 325 mg tablet 325 mg PO QAM tab 03/12/19 06/19/19 History omeprazole 20 mg capsule,delayed 20 mg PO QAM cap 03/12/19 06/19/19 History release simvastatin 40 mg tablet 40 mg PO QAM #90 tab 03/12/19 06/19/19 History losartan 25 mg PO QAM 06/19/19 06/19/19 History multivitamin 1 tab PO DAILY 06/19/19 06/19/19 History omega 0-hae-auc-fish oil [Fish Oil] 1 cap PO QAM 06/19/19 06/19/19 History Patient History Medical History Shingles (Acute) Rising PSA level (Acute) Palpitations (Acute) Hypertension (Acute) Hypercholesterolemia (Acute) Family History Other No significant family history Social History Preferred Language: Indonesian Communication Ability: Effective Beliefs That Will Affect Care: None Current Living Situation: Spouse Feels Safe at Home: Yes Smoking Status: Never smoker Hx Alcohol Use: No Hx Substance Use: No Physical Exam Physical Exam: Gen.: No acute distress. Alert and oriented. HEENT: Anicteric sclera. Neck: No JVD. No bruits. Normal carotid upstrokes bilaterally. Cardiac: PMI was nondisplaced. No ventricular heave. Regular. Normal S1-S2. No murmurs, rubs, or gallops. Pulmonary: Clear to auscultation bilaterally without wheezes, rales, or rhonchi. Abdomen: Soft, nontender, nondistended, with normoactive bowel sounds. No bruits noted. Extremities: 2+ radial pulses bilaterally. 2+ posterior tibialis pulses bilaterally. No edema or cyanosis. No palpable cords. Psychiatric: Affect appears appropriate. Results & Data Vital Signs (Past 12 Hours) Vital Signs Temp Pulse Pulse Resp BP BP Pulse Ox 06/19/19 12:59 36.5 C 77 12 129/78 98 06/19/19 12:58 06/19/19 12:48 81 06/19/19 12:31 73 21 106/79 96 06/19/19 12:30 73 06/19/19 12:15 77 23 95 06/19/19 12:01 74 95 06/19/19 12:00 76 94 06/19/19 11:45 75 24 97 06/19/19 11:32 80 20 97 06/19/19 11:31 73 23 144/79 H 95 06/19/19 11:30 73 22 96 06/19/19 11:18 118 H 19 144/101 H 97 06/19/19 11:17 117 H 18 97 06/19/19 11:00 118 H 21 117/84 06/19/19 10:45 118 H 18 06/19/19 10:30 117 H 22 119/80 06/19/19 10:16 115 H 21 97 06/19/19 10:14 115 H 24 116/88 96 06/19/19 10:03 111 H 18 123/97 95 06/19/19 09:46 209 H 20 106/79 98 06/19/19 09:30 208 H 12 108/75 98 06/19/19 09:15 206 H 15 102/77 99 06/19/19 09:01 205 H 12 116/67 99 06/19/19 08:55 100 06/19/19 08:54 203 H 11 L 106/75 97 06/19/19 08:40 98 06/19/19 08:37 205 H 19 111/76 98 Pulse Ox 06/19/19 12:59 06/19/19 12:58 98 06/19/19 12:48 06/19/19 12:31 06/19/19 12:30 06/19/19 12:15 06/19/19 12:01 06/19/19 12:00 06/19/19 11:45 06/19/19 11:32 06/19/19 11:31 06/19/19 11:30 06/19/19 11:18 06/19/19 11:17 06/19/19 11:00 06/19/19 10:45 06/19/19 10:30 06/19/19 10:16 06/19/19 10:14 06/19/19 10:03 06/19/19 09:46 06/19/19 09:30 06/19/19 09:15 06/19/19 09:01 06/19/19 08:55 06/19/19 08:54 06/19/19 08:40 06/19/19 08:37 Laboratory Results Laboratory Results - last 24 hr 06/19/19 06/19/19 06/19/19 09:45 09:45 09:45 WBC 12.21 H RBC 5.08 Hgb 15.7 Hct 44.5 MCV 87.6 MCH 30.9 MCHC 35.3 RDW Std Deviation 41.8 RDW Coeff of Silver 13.1 Plt Count 346 MPV 9.1 Immature Gran % (Auto) 0.2 Neut % (Auto) 69.5 Lymph % (Auto) 22.7 Routt % (Auto) 7.0 Eos % (Auto) 0.4 Baso % (Auto) 0.2 Immature Gran # (Auto) 0.03 H Neut # (Auto) 8.49 H Lymph # (Auto) 2.77 Routt # (Auto) 0.85 H Eos # (Auto) 0.05 Baso # (Auto) 0.02 PT 11.1 INR 1.1 APTT 25.8 PTT Ratio 1.0 Sodium 139 Potassium 5.3 H Chloride 106 Carbon Dioxide 25 Anion Gap 8.0 BUN 43 H Creatinine 1.63 H Est Cr Clr Drug Dosing 63.0 Est GFR ( Amer) 53.0 Est GFR (Non-Af Amer) 45.8 BUN/Creatinine Ratio 26.1 H Glucose 141 H Estimat Average Glucose Hemoglobin A1c Calcium 9.7 Magnesium Total Bilirubin 1.2 H AST 34 ALT 62 Alkaline Phosphatase 79 Troponin I 0.137 H* Total Protein 7.5 Albumin 4.0 Globulin 3.5 Albumin/Globulin Ratio 1.1 Lipase 111 TSH 4.200 06/19/19 06/19/19 06/19/19 09:45 09:45 14:17 WBC RBC Hgb Hct MCV MCH MCHC RDW Std Deviation RDW Coeff of Silver Plt Count MPV Immature Gran % (Auto) Neut % (Auto) Lymph % (Auto) Routt % (Auto) Eos % (Auto) Baso % (Auto) Immature Gran # (Auto) Neut # (Auto) Lymph # (Auto) Routt # (Auto) Eos # (Auto) Baso # (Auto) PT INR APTT PTT Ratio Sodium Pending Potassium Pending Chloride Pending Carbon Dioxide Pending Anion Gap Pending BUN Pending Creatinine Pending Est Cr Clr Drug Dosing Pending Est GFR ( Amer) Pending Est GFR (Non-Af Amer) Pending BUN/Creatinine Ratio Pending Glucose Pending Estimat Average Glucose 117 Hemoglobin A1c 5.7 H Calcium Pending Magnesium 2.5 H Total Bilirubin AST ALT Alkaline Phosphatase Troponin I Total Protein Albumin Globulin Albumin/Globulin Ratio Lipase TSH Diagnostic Findings Telemetry reviewed: Telemetry strips reviewed. Atrial flutter with rapid ventricular response. Was in sinus rhythm during visit. ECGs personally reviewed: ECG 06/26/2006: Sinus rhythm 77 bpm. Normal ECG. ECG 06/19/2019 at 10:06 a.m.: Atrial flutter with 2-1 AV block and PVC versus aberrantly conducted complex. Possible septal infarct. ECG 06/19/2019 at 11:28 a.m.: Sinus rhythm with PVCs at [address]/T- wave abnormality. Echo 06/19/2019: Mildly dilated LV with low-normal systolic function. EF 50- 55%. Normal wall motion. Mild LVH. No significant diastolic dysfunction. Mildly dilated RV with normal systolic function. Mild left atrial dilation. Mild MR. Chest x-ray 06/19/2019: No acute cardiopulmonary findings per Radiology. PG Care Time/CCT Total # of Minutes Spent Total Time Spent with Patient: Total time spent is greater than 50% in coordination of care (as documented) at patient's floor/unit and/or counseling patient:
[2019-06-19 14:55] LABS: BUN Creatinine Ratio 31.5 (10-20); Calcium 8.7 mg/dl (8.5-10.1); Creatinine Clr Calc Pharmacy 98.1 ml/min; Est GFR (African American) 81.7; Est GFR (Non-African American) 70.5; Potassium 4.3 mmol/L (3.5-5.1)
[2019-06-19 17:04] LABS: Partial Thromboplastin Ratio 1.3; Partial Thromboplastin Time 34.5 Seconds (21.0-31.0)
[2019-06-19] MEDS ORDERED: Nursing to Pharmacy Communication ONE ×2 (18:29→18:32)
[2019-06-19] MEDS ORDERED: HEPARIN IV BOLUS 7,000 UNITS in SYRINGE 0 ML IV ONE (18:30)
[2019-06-19] MEDS ORDERED: METOPROLOL TARTRATE 25 MG TAB PO ONE (21:00)
[2019-06-20 00:55] LABS: Partial Thromboplastin Time 107.1 Seconds (21.0-31.0)
[2019-06-20] MEDS: HEPARIN SODIUM/DEXTROSE 25,000 UNITS/500 ML BAG IV SCH (00:55)
[2019-06-20] MEDS: SODIUM CHLORIDE 0.9% 1000ML 1,000 ML IV SCH (01:55)
[2019-06-20 05:33] LABS: Basophils # (auto) 0.04 K/uL (0-0.2); Basophils % (auto) 0.6 %; Eosinophils # (auto) 0.37 K/uL (0-0.5); Eosinophils % (auto) 5.5 %; Hematocrit (blood only) 38.5 % (42-52); Lymphocytes # (auto) 3.16 K/uL (1.2-3.4); Lymphocytes % (auto) 47.2 %; Mean Corpuscular Hemoglobin 29.9 pg (25-34); Mean Corpuscular Hgb Conc 33.8 g/dL (32-36); Mean Corpuscular Volume 88.5 fL (80-100); Mean Platelet Volume 8.9 fL (7.4-10.4); Monocytes % (auto) 7.5 %; Neutrophils # (auto) 2.62 K/uL (1.4-6.5); Neutrophils % (auto) 39.2 %; Platelet Count 232 K/uL (130-400); RDW Coefficient of Variation 13.1 % (11.5-14.5); RDW Standard Deviation 42.5 fL (36.4-46.3); Red Blood Count 4.35 M/uL (4.7-6.1); White Blood Count 6.69 K/uL (4.8-10.8)
[2019-06-20 06:02] LABS: Albumin Level 3.1 gm/dl (3.4-5.0); BUN Creatinine Ratio 23.1 (10-20); Calcium 7.9 mg/dl (8.5-10.1); Est GFR (African American) 88.2; Est GFR (Non-African American) 76.1; Potassium 3.8 mmol/L (3.5-5.1)
[2019-06-20 06:20] LABS: Albumin Globulin Ratio 1.1 (0.9-2); Globulin 2.9 gm/dl (2.5-4.0)
[2019-06-20 07:51] LABS: Partial Thromboplastin Ratio 1.4; Partial Thromboplastin Time 37.2 Seconds (21.0-31.0)
[2019-06-20] MEDS: ATORVASTATIN 40 MG TAB PO SCH (10:34)
[2019-06-20] MEDS: PANTOprazole 40 MG TAB PO SCH (10:34)
[2019-06-20] MEDS: METOPROLOL TARTRATE 25 MG TAB PO SCH (10:34)
[2019-06-20] MEDS ORDERED: APIXABAN 5 MG TABLET PO SCH (11:00)
--- NOTE | 2019-06-20 11:22 | Cardiology Progress Note ---
Date of Service June 20, 2019 Assessment & Plan (1) Atrial flutter with rapid ventricular response: Has been having symptoms since January but now documented atrial flutter with rapid ventricular response, possibly 1-1 conduction with heart rates greater than 200 bpm. Currently in sinus rhythm after spontaneously converting while on diltiazem drip. Continue metoprolol 25 mg twice daily. Reocommend outpatient EP evaluation for consideration of ablation which was discussed with he and his today. Agree with anticoagulation for stroke risk reduction. Would consider Eliquis on discharge. (2) Elevated troponin: Likely secondary to prolonged tachyarrhythmia from demand ischemia. He did not rule in for NSTEMI. (3) Hypertension: Blood pressure adequately controlled. (4) Hypercholesterolemia: Can continue statin therapy. (5) Chest pain: Likely secondary to atrial flutter with rapid ventricular response. He otherwise has not been experiencing exertional chest discomfort despite active lifestyle. Acute renal insufficiency: May be due to prolonged tachyarrhythmia. Losartan was held by hospitalist service. Renal labs improved. Disposition: Can be discharged from cardiology standpoint. Recommend outpatient EP consultation to discuss atrial flutter ablation. Plan of care discussed with primary hospitalist service, Dr. Clifton. Subjective He denies chest pain, shortness of breath, palpitations, bleeding, edema, or syncope. His is present at the bedside. No further atrial flutter on telemetry. ROS: as above. Physical Exam Physical Exam: Gen.: No acute distress. Alert and oriented. HEENT: Anicteric sclera. Neck: No JVD. Cardiac: Regular. Normal S1-S2. No murmurs, rubs, or gallops. Pulmonary: Clear to auscultation bilaterally without wheezes, rales, or rhonchi. Abdomen: Soft, nontender, nondistended, with normoactive bowel sounds. No bruits noted. Extremities: 2+ radial pulses bilaterally. 2+ posterior tibialis pulses bilaterally. No edema or cyanosis. Psychiatric: Affect appears appropriate. Results & Data Vital Signs (Past 12 Hours) Vital Signs Temp Pulse Pulse Resp BP Pulse Ox Pulse Ox 06/20/19 09:05 79 118/87 06/20/19 07:27 36.6 C 73 18 104/85 95 06/20/19 03:55 36.7 C 62 18 103/77 97 06/20/19 03:28 75 92 06/20/19 01:23 67 94 06/19/19 23:31 36.4 C L 70 17 106/75 92 Laboratory Results Laboratory Results - last 24 hr 06/19/19 06/19/19 06/19/19 09:45 14:17 16:41 WBC RBC Hgb Hct MCV MCH MCHC RDW Std Deviation RDW Coeff of Silver Plt Count MPV Immature Gran % (Auto) Neut % (Auto) Lymph % (Auto) [place] % (Auto) Eos % (Auto) Baso % (Auto) Immature Gran # (Auto) Neut # (Auto) Lymph # (Auto) [place] # (Auto) Eos # (Auto) Baso # (Auto) APTT PTT Ratio Sodium 139 Potassium 4.3 D Chloride 107 Carbon Dioxide 25 Anion Gap 6.0 BUN 36 H Creatinine 1.14 D Est Cr Clr Drug Dosing 98.1 Est GFR ( Amer) 81.7 Est GFR (Non-Af Amer) 70.5 BUN/Creatinine Ratio 31.5 H Glucose 138 H Estimat Average Glucose 117 Hemoglobin A1c 5.7 H Calcium 8.7 Total Bilirubin AST ALT Alkaline Phosphatase Troponin I 0.138 H* Total Protein Albumin Globulin Albumin/Globulin Ratio Triglycerides Cholesterol LDL Cholesterol, Calc VLDL Cholesterol, Calc HDL Cholesterol Cholesterol/HDL Ratio 06/19/19 06/19/19 06/20/19 16:41 23:20 00:13 WBC RBC Hgb Hct MCV MCH MCHC RDW Std Deviation RDW Coeff of Silver Plt Count MPV Immature Gran % (Auto) Neut % (Auto) Lymph % (Auto) [place] % (Auto) Eos % (Auto) Baso % (Auto) Immature Gran # (Auto) Neut # (Auto) Lymph # (Auto) [place] # (Auto) Eos # (Auto) Baso # (Auto) APTT 34.5 H 107.1 H* PTT Ratio 1.3 4.0 Sodium Potassium Chloride Carbon Dioxide Anion Gap BUN Creatinine Est Cr Clr Drug Dosing Est GFR ( Amer) Est GFR (Non-Af Amer) BUN/Creatinine Ratio Glucose Estimat Average Glucose Hemoglobin A1c Calcium Total Bilirubin AST ALT Alkaline Phosphatase Troponin I 0.144 H* Total Protein Albumin Globulin Albumin/Globulin Ratio Triglycerides Cholesterol LDL Cholesterol, Calc VLDL Cholesterol, Calc HDL Cholesterol Cholesterol/HDL Ratio 06/20/19 06/20/19 06/20/19 05:19 05:19 05:19 WBC 6.69 RBC 4.35 L Hgb 13.0 L Hct 38.5 L MCV 88.5 MCH 29.9 MCHC 33.8 RDW Std Deviation 42.5 RDW Coeff of Silver 13.1 Plt Count 232 MPV 8.9 Immature Gran % (Auto) 0.0 Neut % (Auto) 39.2 Lymph % (Auto) 47.2 [place] % (Auto) 7.5 Eos % (Auto) 5.5 Baso % (Auto) 0.6 Immature Gran # (Auto) 0.00 Neut # (Auto) 2.62 Lymph # (Auto) 3.16 [place] # (Auto) 0.50 Eos # (Auto) 0.37 Baso # (Auto) 0.04 APTT PTT Ratio Sodium 140 Potassium 3.8 Chloride 108 H Carbon Dioxide 27 Anion Gap 5.0 BUN 25 H Creatinine 1.07 Est Cr Clr Drug Dosing 105.0 Est GFR ( Amer) 88.2 Est GFR (Non-Af Amer) 76.1 BUN/Creatinine Ratio 23.1 H Glucose 92 Estimat Average Glucose Hemoglobin A1c Calcium 7.9 L Total Bilirubin 1.0 AST 26 ALT 57 Alkaline Phosphatase 62 Troponin I 0.118 H* Total Protein 6.0 L Albumin 3.1 L Globulin 2.9 Albumin/Globulin Ratio 1.1 Triglycerides 83 Cholesterol 128 LDL Cholesterol, Calc 75 VLDL Cholesterol, Calc 17 HDL Cholesterol 36 Cholesterol/HDL Ratio 4 06/20/19 07:17 WBC RBC Hgb Hct MCV MCH MCHC RDW Std Deviation RDW Coeff of Silver Plt Count MPV Immature Gran % (Auto) Neut % (Auto) Lymph % (Auto) [place] % (Auto) Eos % (Auto) Baso % (Auto) Immature Gran # (Auto) Neut # (Auto) Lymph # (Auto) [place] # (Auto) Eos # (Auto) Baso # (Auto) APTT 37.2 H PTT Ratio 1.4 Sodium Potassium Chloride Carbon Dioxide Anion Gap BUN Creatinine Est Cr Clr Drug Dosing Est GFR ( Amer) Est GFR (Non-Af Amer) BUN/Creatinine Ratio Glucose Estimat Average Glucose Hemoglobin A1c Calcium Total Bilirubin AST ALT Alkaline Phosphatase Troponin I Total Protein Albumin Globulin Albumin/Globulin Ratio Triglycerides Cholesterol LDL Cholesterol, Calc VLDL Cholesterol, Calc HDL Cholesterol Cholesterol/HDL Ratio Diagnostic Findings Telemetry personally reviewed: Sinus with one episode of nonsustained atrial tachycardia at 0810 AM. Repeat ECG ordered and pending. Medications Administered Current Inpatient Medications Acetaminophen (Tylenol) 650 mg PO Q4H PRN PRN Reason: Pain or Fever Stop: 07/19/19 11:06 Al Hydrox/Mg Hydrox/Simethicone (Maalox) 15 ml PO Q4H PRN PRN Reason: Dyspepsia Stop: 07/19/19 11:06 Apixaban (Eliquis) 5 mg PO BID [facility] Stop: 07/20/19 10:59 Last Admin: 06/20/19 10:57 Dose: 5 mg Documented by: Atorvastatin Calcium (Lipitor) 40 mg PO QAM [facility] Stop: 07/19/19 11:14 Last Admin: 06/20/19 10:34 Dose: 40 mg Documented by: Sodium Chloride (Nss 1000ml) 1,000 mls @ 75 mls/hr IV .[id number] [facility] Stop: 07/19/19 11:14 Last Admin: 06/20/19 01:55 Dose: 75 mls/hr Documented by: Magnesium Hydroxide (Milk Of Magnesia) 30 ml PO Q12H PRN PRN Reason: Constipation Stop: 07/19/19 11:06 Metoprolol Tartrate (Lopressor) 25 mg PO BID [facility] Stop: 07/19/19 11:14 Last Admin: 06/20/19 10:34 Dose: 25 mg Documented by: Nitroglycerin (Nitrostat) 0.4 mg SL UD PRN PRN Reason: Chest Pain Stop: 07/19/19 11:06 Pantoprazole Sodium (Protonix) 40 mg PO DAILY [facility] Stop: 07/19/19 11:59 Last Admin: 06/20/19 10:34 Dose: 40 mg Documented by: Polyethylene Glycol (Miralax Powder Packet) 17 gm PO DAILY PRN PRN Reason: Constipation Stop: 07/19/19 11:06 Zolpidem Tartrate (Ambien) 5 mg PO HS PRN PRN Reason: Sleep Stop: 07/19/19 11:06 PG Care Time/CCT Total # of Minutes Spent Total Time Spent with Patient: Total time spent is greater than 50% in coordination of care (as documented) at patient's floor/unit and/or counseling patient:
--- NOTE | 2019-06-20 13:03 | Discharge Summary ---
Date of Service June 20, 2019 Admission HPI Per Admitting Provider 58 years old man with past medical history of dyslipidemia, hypertension and obesity presented to the hospital with acute onset palpitation, chest tightness, diaphoresis associated with shortness of breath that happened last night. Patient said that for the last 3 to 4 months he has been having intermittent episodes of palpitation associated with chest tightness and shortness of breath usually lasts for 1 or 2 hours and then goes away. He never tried to seek medical attention for. He has a strong family history of heart disease from his father's side. 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 On arrival to the ED today because his palpitation lasted longer than usual was found to have a heart rate of 200 irregular irregularity, failed to control with adenosine and then finally improved with the Cardizem drip. EKG after lowering the heart rate showed atrial flutter with variable AV block and some ST depressions. His troponin was 0.13, creatinine jumped from baseline normal to 1.6. Currently his symptoms all resolved after lowering his heart rate, patient will be admitted for further evaluation and management Primary Care Provider: Bam Guerrier MD Admission Exam Per Admitting Provider Physical examination General patient is obese appears to be comfortable, not in acute distress HEENT: Atraumatic , normocephalic /no jaundice /no pallor /anicteric /no dry mucous membrane /normal external ear inspection Neck: Supple /no swelling /central trach Heart: irregular irregularity/no gallop /no rub /no murmur Lungs: Clear to auscultation bilaterally/normal chest with expansion/no rhonchi/no rales/no wheezing/no use of accessory muscles of respiration Abdomen: Soft/nontender/no guarding/no rebound/no organomegaly/no pulsatile mass Musculoskeletal: No swelling/no edema/no tenderness/normal range of motion Neuro exam: Awake alert oriented 3/cranial nerves II through XII appear to be intact/sensation intact/moves all extremities/no abnormal movements Psychiatric evaluation: No depressed mood/normal affect Skin: No rash on exposed skin area/no erythema Extremity: Normal pulse/no pitting edema/no clubbing or cyanosis Endocrine/lymphatic: No obvious lymphadenopathy /no lymphedema Principal Diagnosis Aflutter with RVR and Demand Ischemia Discharge Exam General: A&Ox3. NAD. Cooperative. HEENT: Atraumatic, normocephalic. Mucous membranes moist. Pulm: CTAB A&P. -wheezes, -rales, -rhonchi. Symmetrical chest rise. No increase work of breathing. No respiratory distress. Cardiac: RRR, -mrg. Radial pulses intact and symmetrical. No JVD. Abdominal: Nontender, nondistended, soft. BS present. Extremity: PT/radial pulses intact and symmetrical. Strength grossly intact bilaterally in UE/LE. No sensory deficits. Discharge Data Allergies Allergy/AdvReac Type Severity Reaction Status Date / Time Penicillins Allergy Mild Verified 06/19/19 10:07 COURTNEY Inhibitors Allergy Verified 06/19/19 10:07 Consultations 06/19/19 10:31 ED Decision to Admit Stat 06/19/19 11:07 Consult Cardiology Routine Hospital Course (1) Atrial flutter with rapid ventricular response: Inder Valenzuela is a 58yo M who presented to the emergency department for palpitations, chest tightness, and diaphoresis and who was admitted for atrial flutter with RVR and elevated troponins. Atrial Flutter with RVR, Type 2 NSTEMI Inder presented with palpitations, chest tightness, and diaphoresis associated with shortness of breath present acutely for one night, but which has occurred intermittently for 3-4 months. He has a pmhx of HTN, HLD, but had no history of ACS/TX. On admission to the emergency department he was found to have A flutter with RVR and rate >200. EKG showed ST depressions in the anterior/inferior leads, and there was a mild troponin leak. He was placed on a heparin drip and cardiology was consulted. Treatment with adenosine showed flutter rhythm which persisted. He has a mild troponin elevation which peaked at 0.144 and downtrended. He was started on diltiazem drip and spontaneously converted to sinus rhythm. ECHO showed normal EF without wall motion abnormalities. Metoprolol was added for rate control and diltiazem drip was stopped. He remain ed in sinus rhythm throughout the rest of admission. His [id number] was 1, on discussion of risks/benefits with him and his it was decided to discontinue heparin and start prophylaxis with apixaban. He was discharged with followup to Cardiology and further electrophysiology studies as outpatient for potential ablation therapy. Metoprolol tartrate 25mg twice daily for rate control was continued on discharge. Hypertension Pt has a history of hypertension treated with losartan due to cough while on lisinopril. He had good blood pressure control during admission, and tolerated the addition of diltizem and subsequently metoprolol as above well. He had no clinical signs of hypotension following treatment of his tachyarrythmia. Primary prevention with aspirin was discontinued during admission with re-evaluation for low dose aspirin after ablation per his outpatient providers. Hyperlipidemia Inder has a history of hyperlipidemia controlled with simvastatin. He was converted to atorvastatin 40mg during admission with followup to his PCP for further lipid studies/LFTs as outpatient. (2) Elevated troponin: (3) Acute kidney injury: (4) Hypertension: (5) Hypercholesterolemia: (6) Abnormal ECG: Total Time Total Time Spent Total Time Spent (In Minutes): Less than 30 Discharge Plan Discharge Items Patient Disposition: Home - Self-Care Reason For Visit: NEW ONSET OF AFIB Discharge Diagnosis: Atrial Flutter with RVR and demand ischemia Activity: Per Instructions section Non-emergency contact: Primary Care Provider and Verse Writer Call non-emergency contact if: you have any medication questions, your symptoms worsen, your pain is not controlled, your pain is worsening, your pain is concerning for you and you have a fever Follow-up/Referrals: Bam Guerrier III, MD [Primary Care Provider] - Diet: Heart Healthy Addtl Attending Provider Instructions: You were seen in the hospital for a rapid heart rate called atrial flutter with rapid ventricular response. You responded well to medications designed to control a fast heart rate and were in a normal heart rhythm at time of discharge. You are at risk for returning to this rhythm which also puts you at increased risk of blood clots and strokes. You have been started on medications to help control your heart rate and to prevent blood clots as noted below. You have also had follow-up scheduled with cardiology and your primary care provider as noted below. You have been started on a medication to control your heart rate called metoprolol. Please take metoprolol tartrate 25 mg by mouth twice daily. If you develop any lightheadedness, dizziness, feeling like you are going to pass out, chest pain, chest pressure, or low blood pressure please contact your primary care provider or music historian regarding this medication. You have been started on a medication called Eliquis to help prevent blood clots, which you are at increased risk for due to your history of atrial flutter. Please take Eliquis (also called apixaban) 5 mg by mouth twice daily. This medication is a blood thinner to goal rate and will make you more susceptible to bleeding. You will be more vulnerable to bruising, small cuts may bleed more than normal or take longer to stop bleeding, large cuts or injuries may be potentially dangerous due to bleeding. If you have a small cut apply direct pressure to the area for at least 10 minutes without checking the wound. If your bleeding does not stop, or you are concerned about the injury contact your primary care provider or 911 for transport to the emergency department if you are very concerned. Please stop taking your simvastatin. This has been changed to atorvastatin 40 mg. Please take atorvastatin 40 mg daily. Please discuss this medication with Dr. Guerrier at follow-up, and whether/when you would benefit from follow-up blood work. Please stop taking your daily aspirin. Your primary care provider or music historian will discuss if/when you should restart this medication. You are being scheduled for follow-up with cardiology. They arranging a electrophysiology evaluation for possible ablation which has the potential to cure your atrial flutter. They will reach out to you with details for your appointment. If you do not hear from them within 48 hours, please contact their office at [phone]. An appointment is being scheduled for you with your primary care provider Dr. Guerrier. You should hear from their office within 48 hours. If you do not hear from them please call his office at [phone] for a follow-up appointment, you should be seen within the next 1 to 2 weeks. If you develop any new, recurrent, or worsening symptoms including palpitations, chest pain, chest pressure, lightheadedness, dizziness, change in vision, passing out or nearly passing out, weakness, vision change, headache, or numbness/tingling please call your primary care provider or call 911 for transport to the emergency department if you are very concerned. Pending Studies at Discharge: Yes Studies:: Electrophysiology study with cardiology Stand-Alone Forms: My [employer] Medications and DC Order Prescriptions: New metoprolol tartrate 25 mg Tablet 25 mg PO BID 30 Days Qty: 60 RF: 1 Eliquis 5 mg Tablet 5 mg PO BID 30 Days Qty: 60 RF: 1 atorvastatin 40 mg Tablet 40 mg PO QAM 30 Days Qty: 30 RF: 1 Continued omeprazole 20 mg capsule,delayed release(DR/EC) 20 mg PO QAM RF: 0 multivitamin Tablet 1 tab PO DAILY RF: 0 omega 4-[id number]-fish oil [Fish Oil] 1,000 mg (120 mg-180 mg) Capsule 1 cap PO QAM RF: 0 losartan 25 mg tablet 25 mg PO QAM RF: 0 Discontinued aspirin 325 mg tablet 325 mg PO QAM RF: 0 simvastatin 40 mg tablet 40 mg PO QAM Qty: 90 RF: 0 Discharge Orders: Discharge Order (Routine); Ordered 06/20/19 Ordered By: John Gastelum Admission Data Admit Date/Time: 06/19/19 11:08 Attending Provider: [place] Clifton Admit Provider: Fito Villalobos Primary Care Provider: Bam Guerrier III Other Providers: Fito Villalobos ; Ronaldo Anton ; John Gastelum Other Interventions: Discharge Summary Assessment (RN) Last Done: 06/20/19 13:21 DC Date/Time DO NOT enter until pt leaves facility: 06/20/19 13:45 Supervising Physician Co-Signing Physician Notes I personally examined the patient and verified all benites points of history and exam, discussed case, and agree with decision making with Dr Gastelum. Feeling better. Case discussed with cardiology. All questions answered by Dr. Gastelum and Dr. Anton, patient notes no further questions, feeling good. Understands plan. Vitals noted, in general he is awake alert pleasant no distress. HEENT normocephalic atraumatic mucous membranes moist. Breathing unlabored no accessory muscle use. New onset a flutterno sinus again, continue rate control and anticoagulation. Outpatient follow-up. Stable for home. Otherwise as above.
== END 2019-06-20 13:45 | disposition home or self-care (01) | DRG 309 ==
LOC: ED 08:31 → SUATTDRO 11:08 → 2S 11:08 → 2E 23:18
DX: I48.92 Unspecified atrial flutter; Z88.0 Allergy status to penicillin; E78.00 Pure hypercholesterolemia, unspecified; N17.9 Acute kidney failure, unspecified; Z79.82 Long term (current) use of aspirin; I10 Essential (primary) hypertension; I24.8 Other forms of acute ischemic heart disease; E66.9 Obesity, unspecified; Z68.28 Body mass index [BMI] 28.0-28.9, adult

== ENCOUNTER 2024-02-05 14:05 | Inpatient (IN) ==
--- NOTE | 2024-02-05 15:00 | Emergency Department Note ---
Impression & Plan Atrial fibrillation with rapid ventricular response, SOB (shortness of breath), Fluid overload, Elevated liver enzymes, Elevated troponin ED Provider Note NAME: LOKI HARRIS AGE: 63 SEX: M : 1960 ARRIVES VIA: Walk-In INFORMANT: [Patient] ED PROVIDER(S): [Rickey Salas MD] CHIEF COMPLAINT: Tachycardia HISTORY OF PRESENT ILLNESS: The patient is a 63-year-old male who states that for several days, he has felt a bit short of breath. He thought maybe he was coming down with a cold or some sort of respiratory illness. He has not had chest pain. The patient has noticed some weight gain--in about 2 weeks, he has gained 12 pounds and he does have a mild amount of pedal edema that was not present 2 weeks ago. The patient states that he does have a history of A-fib. He is on metoprolol 100 mg in the morning and 50 mg at night. He is also on Eliquis. The patient went to his doctor's office today, he was told that he was in a rapid A-fib, he was referred to the ER. The patient did fall several weeks ago and injured his ribs. He wonders if somehow the fall is playing into his presentation today. PMHx/PSHx/Social Hx: See Below PHYSICAL EXAM: GENERAL: Patient is in no acute distress. HEENT: No acute trauma, normocephalic atraumatic, mucous membranes moist, no nasal congestion. NECK: No stridor, no adenopathy, no meningismus, trachea is midline. LUNGS: Clear to auscultation bilaterally, no wheeze, no rhonchi, breath sounds equal. Appears mildly short of breath with an increased respiratory rate. HEART: Tachycardic with an irregular rhythm. No murmurs. ABDOMEN: Soft, nontender, no peritonitis. EXTREMITIES: No cyanosis, full range of motion of all the joints without pain or difficulty. Mild bilateral pedal edema. NEUROLOGIC: Oriented x 3, no acute motor or sensory deficits, no focal weakness. SKIN: No jaundice, no diaphoresis. DIFFERENTIAL DIAGNOSIS: A-fib, a flutter, fluid overload, anemia, electrolyte imbalance, TN, among others. EMERGENCY DEPARTMENT PROCEDURES: MEDICAL DECISION MAKING: There is no leukocytosis or concerning anemia. There is a normal platelet count. No coagulopathy. No renal failure or significant electrolyte abnormality. There were some liver enzyme elevations, likely secondary to congestion/fluid overload. The bilirubin was normal. BNP was elevated consistent with CHF and fluid overload. Chest x-ray showed cardiomegaly, no true CHF. No pneumonia. ECG showed a rapid atrial fibrillation with some nonspecific change. Cardiac enzyme testing x 1 was slightly elevated. This troponin elevation could be secondary to cardiac injury or potentially mismatch from his tachycardia. The patient appeared to be in a euthyroid state. Urinalysis did not show infection. The patient presented tachycardic. He was in a rapid A-fib. He was hypertensive and appeared slightly short of breath. The patient received IV Lopressor, a total of 10 mg. He was given oral metoprolol tartrate 25 mg. Despite this medication, he remained tachycardic. He received 40 mg of IV Lasix to help with diuresis. He was eventually given a bolus of IV diltiazem and placed on a diltiazem drip. The diltiazem did slow his heart rate to the 80s. His blood pressure was improved as well. He seemed much more comfortable. The patient has diuresed significantly since the Lasix administration. The patient is in need of a hospital stay. He requires further heart rate control, monitoring and workup. I suspect he will require further diuresis. I did speak with the patient at length, the on-call hospitalist was consulted. Case management has been involved. Prior/Outside records/notes reviewed: None ECG per my interpretation: Indication was tachycardia and shortness of breath. The ECG shows what appears to be atrial fibrillation with PVCs. There is some nonspecific ST change. There is no acute ST elevation. The QTc is 479. Continuous Cardiac Monitoring per my interpretation: An order was placed for continuous cardiac monitoring. The monitor shows a rate of 125 with atrial fibrillation. Imaging/x-ray results per my interpretation: Chest x-ray shows some cardiomegaly, I see no CHF or pneumonia. Chronic Medical/Social conditions affecting care: Chronic anticoagulation. Care/Management discussed with: Case management, the on-call hospitalist. Level of care consideration(s): After review of the information above and other included data: --I believe the patient requires escalation of care to admission Critical Care Note: I have personally spent 56 minutes of critical care time in the direct management of this patient. This includes bedside care, interpretation of diagnostic studies, and testing, discussion with consultants, patient, and family members, and other required patient management activities. This 56 minutes is in excess of all separately billable procedures. DISPOSITION: Admission Past Med/Surg History Medical History Umbilical hernia BPH (benign prostatic hyperplasia) GERD (gastroesophageal reflux disease) Atrial flutter dx 1 month ago - [place] ER - follows w/ Dr. Tang - on Eliquis + metoprolol Shingles Hypertension Hypercholesterolemia Surgical History History of colonoscopy (09/07/19) Dr. Mason, 2 transverse colon and ascending colon polyps lymphoid aggregates, diverticulosis of sigmoid colon, nonbleeding internal hemorrhoids. Recheck 10 years History of ankle surgery Lt History of hand surgery BL History of tooth extraction Family History Grandfather No problems noted. Aunt Coronary heart disease Uncle Coronary heart disease Myocardial infarction Father Hx of CABG Myocardial infarction Grandfather (Maternal) Prostate cancer Other No significant family history Denies family history of Ovarian cancer Breast cancer Colorectal cancer Social History Smoking Status: Never smoker Second Hand Exposure: No; Do You Dip or Chew Tobacco: No; Hx Alcohol Use: No Hx Substance Use: No Preferred Language: Amharic Communication Ability: Effective Spoke Maker Required: No Beliefs That Will Affect Care: None marital status: Current Living Situation: Spouse current occupational status: employed 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 Feels Safe at Home: Yes Childhood Exposure to Second-Hand Smoke: No Diet: regular caffeine: Yes Dental Care, Regularly: Yes Physical Activity Frequency: Daily Seatbelt Use: always Sunscreen Use: No Assistive Devices: None Allergies Allergies Allergy/AdvReac Type Severity Reaction Status Date / Time Penicillins Allergy Mild Rash Verified 02/05/24 13:17 COURTNEY Inhibitors AdvReac Cough Verified 02/05/24 13:17 Home Meds Home Medications Medication Instructions Recorded Confirmed omeprazole 20 mg capsule,delayed 20 mg PO QAM 03/12/19 02/05/24 release multivitamin 1 tab PO QAM 06/19/19 02/05/24 omega 1-mip-oed-fish oil 1,000 mg 1 cap PO QAM 06/19/19 02/05/24 (120 mg-180 mg) capsule (Fish Oil) Super Beta-Prostate 1 dose PO QAM 02/05/24 02/05/24 ascorbic acid (vitamin C) 1,000 mg 1 g PO QAM 02/05/24 02/05/24 tablet (Vitamin C) metoprolol succinate 50 mg See Rx Instructions .Route .COMPLEX 02/05/24 02/05/24 tablet,extended release 24 hr Previous Rx's Medication Instructions Recorded apixaban 5 mg tablet (Eliquis) 5 mg PO BID #180 tabs 10/30/23 atorvastatin 40 mg tablet 40 mg PO QAM 90 days #90 tabs 10/30/23 Results & Data (ED) Vital Signs Vital Signs - 24 hr 02/05/24 14:08 02/05/24 15:03 02/05/24 15:10 Temperature 36.8 C Temperature Source Oral Pulse Rate 124 H 151 H 151 H Pulse Rate [Apical] Pulse Rate from SpO2 Sensor 200 H Pulse Rhythm Regular Pulse Rhythm [Apical] Pulse Strength Normal Pulse Strength [Apical] Respiratory Rate 18 26 H Respiratory Effort / Characteristics Non-Labored Respiratory Depth Normal Respiratory Pattern Regular Blood Pressure 157/91 H Blood Pressure [Left Arm] Blood Pressure Mean 113 Blood Pressure Mean [Left Arm] Blood Pressure Position Sitting Blood Pressure Position [Left Arm] Pulse Oximetry 95 94 Oxygen Delivery Method Room Air Sepsis Recent Fever Within 48 Hours No Sepsis New/Unexplained Change in Mental Status N/A Sepsis Action Taken by Nursing No Action Required 02/05/24 15:10 02/05/24 15:30 02/05/24 15:31 Temperature Temperature Source Pulse Rate 147 H 117 H Pulse Rate [Apical] Pulse Rate from SpO2 Sensor 185 H Pulse Rhythm Pulse Rhythm [Apical] Pulse Strength Pulse Strength [Apical] Respiratory Rate 32 H Respiratory Effort / Characteristics Respiratory Depth Respiratory Pattern Blood Pressure 141/113 H 144/115 H Blood Pressure [Left Arm] Blood Pressure Mean 129 Blood Pressure Mean [Left Arm] Blood Pressure Position Blood Pressure Position [Left Arm] Pulse Oximetry 95 Oxygen Delivery Method Sepsis Recent Fever Within 48 Hours Sepsis New/Unexplained Change in Mental Status Sepsis Action Taken by Nursing 02/05/24 15:31 02/05/24 16:00 02/05/24 16:00 Temperature Temperature Source Pulse Rate 133 H 113 H Pulse Rate [Apical] Pulse Rate from SpO2 Sensor 235 H 180 H Pulse Rhythm Pulse Rhythm [Apical] Pulse Strength Pulse Strength [Apical] Respiratory Rate 27 H 32 H Respiratory Effort / Characteristics Respiratory Depth Respiratory Pattern Blood Pressure 150/126 H Blood Pressure [Left Arm] Blood Pressure Mean 131 Blood Pressure Mean [Left Arm] Blood Pressure Position Blood Pressure Position [Left Arm] Pulse Oximetry 96 Oxygen Delivery Method Room Air Sepsis Recent Fever Within 48 Hours Sepsis New/Unexplained Change in Mental Status Sepsis Action Taken by Nursing 02/05/24 16:15 02/05/24 16:30 02/05/24 16:30 Temperature Temperature Source Pulse Rate 123 H 127 H Pulse Rate [Apical] Pulse Rate from SpO2 Sensor 223 H Pulse Rhythm Pulse Rhythm [Apical] Pulse Strength Pulse Strength [Apical] Respiratory Rate 33 H Respiratory Effort / Characteristics Respiratory Depth Respiratory Pattern Blood Pressure 150/126 H 137/112 H Blood Pressure [Left Arm] Blood Pressure Mean 119 Blood Pressure Mean [Left Arm] Blood Pressure Position Blood Pressure Position [Left Arm] Pulse Oximetry 97 Oxygen Delivery Method Room Air Sepsis Recent Fever Within 48 Hours Sepsis New/Unexplained Change in Mental Status Sepsis Action Taken by Nursing 02/05/24 19:21 02/05/24 20:04 02/05/24 20:04 Temperature Temperature Source Pulse Rate 125 H 125 H Pulse Rate [Apical] 122 H Pulse Rate from SpO2 Sensor Pulse Rhythm Pulse Rhythm [Apical] Irregular Pulse Strength Pulse Strength [Apical] Normal Respiratory Rate 22 Respiratory Effort / Characteristics Non-Labored Spontaneous Respiratory Depth Normal Respiratory Pattern Regular Blood Pressure 122/90 122/90 Blood Pressure [Left Arm] 167/111 H Blood Pressure Mean Blood Pressure Mean [Left Arm] 129 Blood Pressure Position Blood Pressure Position [Left Arm] Lying Pulse Oximetry 95 Oxygen Delivery Method Room Air Sepsis Recent Fever Within 48 Hours Sepsis New/Unexplained Change in Mental Status Sepsis Action Taken by Nursing 02/05/24 20:09 02/05/24 20:09 Temperature Temperature Source Pulse Rate 101 H Pulse Rate [Apical] 115 H Pulse Rate from SpO2 Sensor Pulse Rhythm Pulse Rhythm [Apical] Irregular Pulse Strength Pulse Strength [Apical] Normal Respiratory Rate 20 Respiratory Effort / Characteristics Non-Labored Spontaneous Respiratory Depth Normal Respiratory Pattern Regular Blood Pressure Blood Pressure [Left Arm] 124/95 Blood Pressure Mean Blood Pressure Mean [Left Arm] 104 Blood Pressure Position Blood Pressure Position [Left Arm] Pulse Oximetry 96 Oxygen Delivery Method Room Air Sepsis Recent Fever Within 48 Hours Sepsis New/Unexplained Change in Mental Status Sepsis Action Taken by Half-Way Medications Current Medication List: was personally reviewed by me Laboratory Data Attestation: I reviewed the patient's lab results. 02/05/24 14:57 02/05/24 14:57 Lab Results 02/05/24 02/05/24 02/05/24 Range/Units 14:57 16:58 Unknown WBC 9.31 (4.8-10.8) K/ul RBC 4.77 (4.70-6.10) M/uL Hgb 14.0 (14.0-18.0) g/dl Hct 41.9 L (42.0-52.0) % MCV 87.8 (80.0-100.0) fL MCH 29.4 (25.0-34.0) pg MCHC 33.4 (32.0-36.0) g/dL RDW Std Deviation 41.7 (36.4-46.3) fL RDW Coeff of Silver 13.2 (11.5-14.5) % Plt Count 372 (130-400) K/uL MPV 10.0 (9.4-12.4) fL Immature Gran % (Auto) 0.2 % Neut % (Auto) 68.4 % Lymph % (Auto) 21.8 % [place] % (Auto) 6.6 % Eos % (Auto) 2.5 % Baso % (Auto) 0.5 % Neut # (Auto) 6.37 (1.40-6.50) K/uL Lymph # (Auto) 2.03 (1.20-3.40) K/uL [place] # (Auto) 0.61 H (0.11-0.59) K/uL Eos # (Auto) 0.23 (0.00-0.50) K/uL Baso # (Auto) 0.05 (0.00-0.20) K/uL Immature Gran # (Auto) 0.02 (0.01-0.20) K/uL PT 11.7 (9.0-12.0) Seconds INR 1.1 (0.9-1.1) APTT 24 (21-31) Seconds PTT Ratio 0.9 Sodium 143 (136-145) mmol/L Potassium 4.3 (3.5-5.1) mmol/L Chloride 108 H (98-107) mmol/L Carbon Dioxide 29 (21-32) mmol/L Anion Gap 6 (3-11) BUN 33 H (6-23) mg/dl Creatinine 1.09 (0.6-1.4) mg/dl Est Cr Clr Drug Dosing 100.9 ml/min Est GFR ( Amer) 83.3 ml/min Est GFR (Non-Af Amer) 71.9 ml/min BUN/Creatinine Ratio 30.3 H (10-20) Glucose 125 H (70-99(Fasting)) mg/dl Calcium 9.0 (8.6-10.3) mg/dl Magnesium 2.2 (1.7-2.4) mg/dl Total Bilirubin 0.7 (0.2-1.0) mg/dl AST 74 H (13-39) U/L ALT 139 H (7-52) U/L Alkaline Phosphatase 134 H (34-104) U/L Troponin I High Sens 23.7 H 24.0 H (0-20) pg/ml B-Natriuretic Peptide 501 H (0-100) pg/ml Total Protein 6.8 (6.0-8.3) gm/dl Albumin 4.0 (3.4-5.0) gm/dl Globulin 2.8 (2.5-4.0) gm/dl Albumin/Globulin Ratio 1.4 (0.9-2) TSH 2.084 (0.300-4.500) uIu/ml Urine Color Yellow Urine Appearance Clear (Clear) Urine pH 6.5 (4.5-7.5) Ur Specific [place] 1.009 (1.000-1.030) Urine Protein Negative (Negative) Urine Glucose (UA) Negative (Negative) Urine Ketones Negative (Negative) Urine Blood Negative (Negative) Urine Nitrite Negative (Negative) Urine Bilirubin Negative (Negative) Urine Urobilinogen Negative (Negative) Ur Leukocyte Esterase Negative (Negative) Administered Medications Discontinued Medications Diltiazem HCl (Diltiazem Hcl 5 Mg/Ml 5 Ml Vial) 15 mg IV NOW STA Stop: 02/05/24 19:59 Last Admin: 02/05/24 20:01 Dose: 15 mg Documented By: SATHISH Co-signed By: AKIN Furosemide (Furosemide 40 Mg/4 Ml Vial) 40 mg IV ONE ONE Stop: 02/05/24 16:21 Last Admin: 02/05/24 16:41 Dose: 40 mg Documented By: FRANSICO Metoprolol Tartrate (Metoprolol Tartrate 1 Mg/Ml Vial) 5 mg IV NOW STA Stop: 02/05/24 14:50 Last Admin: 02/05/24 15:10 Dose: 5 mg Documented By: FRANSICO Metoprolol Tartrate (Metoprolol Tartrate 50 Mg Tab) 25 mg PO NOW STA Stop: 02/05/24 14:50 Last Admin: 02/05/24 15:11 Dose: 25 mg Documented By: FRANSICO Metoprolol Tartrate (Metoprolol Tartrate 1 Mg/Ml Vial) 5 mg IV NOW STA Stop: 02/05/24 16:12 Last Admin: 02/05/24 16:15 Dose: 5 mg Documented By: FRANSICO Imaging Data Radiologist's Impression: Chest X-Ray 02/05/24 14:47 XR chest 1V portable CLINICAL HISTORY: weakness TECHNIQUE: Single frontal radiograph of the chest was obtained. Comparison: Comparison is made to chest radiograph 06/19/2019 FINDINGS: No lines and tubes are seen. Aortic valvular prosthesis is seen. The lungs are clear. No evidence of pleural effusion or pneumothorax. IMPRESSION: No acute chest disease. Cardiomegaly is noted. ACT 112: Negative or not required by law. Electronically signed by: Alex Colon M.D. 02/05/2024 3:22 PM Liver Ultrasound 02/05/24 17:52 Exam(s): US LIVER EXAM: US Abdomen Limited, Right Upper Quadrant CLINICAL HISTORY: Reason for exam: RUQ pain w meals, tranaminitis. robina eval.. TECHNIQUE: Real-time ultrasound of the right upper quadrant with image documentation. COMPARISON: No relevant prior studies available. FINDINGS: Liver: Liver measures 18 cm. Normal echogenicity. No focal lesion. Gallbladder: No stones in the gallbladder. No inflammatory changes. Common bile duct: Common bile duct is obscured by shadowing bowel gas. Pancreas: Unremarkable as visualized. Right kidney: Cortical cysts within the mid pole of the right kidney measuring 3.9 x 3.1 cm. Pleural space: Pleural effusion present on the right. IMPRESSION: No sonographically evident acute abnormality in the right upper quadrant. Electronically signed by: Jose Tamayo MD 05/09/24 20:02 PM Discharge Plan Visit Data Chief Complaint: Tachycardia Stated Complaint: TACHYCARDIA ED Provider: Rickey Salas Discharge Problem: Atrial fibrillation with rapid ventricular response, SOB (shortness of breath), Fluid overload, Elevated liver enzymes, Elevated troponin Patient Disposition: Admitted As Inpatient Condition: Fair Forms Stand Alone Forms: My [facility] Prescriptions Prescriptions: No Action Eliquis 5 mg tablet 5 mg PO BID Qty: 180 3RF atorvastatin 40 mg tablet 40 mg PO QAM 90 Days Qty: 90 3RF omeprazole 20 mg capsule,delayed release(DR/EC) 20 mg PO QAM multivitamin Tablet 1 tab PO QAM omega 3-ppn-cds-fish oil [Fish Oil] 1,000 mg (120 mg-180 mg) Capsule 1 cap PO QAM metoprolol succinate 50 mg tablet extended release 24 hr See Rx Instructions .ROUTE .COMPLEX Rx Instructions: take 2 tablets bu mouth in the morning and 1 tablet in the evening ascorbic acid (vitamin C) [Vitamin C] 1,000 mg Tablet 1 g PO QAM Super Beta-Prostate 1 dose PO QAM Referrals Referrals: Anam Almanzar DO [Primary Care Provider] - Discharge Problem: Fluid overload Qualifiers: Hypervolemia type: unspecified Qualified Code(s): E87.70 - Fluid overload, unspecified
[2024-02-05] MEDS: METOPROLOL TARTRATE 1 MG/ML VIAL IV STA ×2 (15:10→16:15)
[2024-02-05] MEDS: METOPROLOL TARTRATE 50 MG TAB PO STA (15:11)
--- NOTE | 2024-02-05 15:23 | XRay Report ---
XR chest 1V portable CLINICAL HISTORY: weakness TECHNIQUE: Single frontal radiograph of the chest was obtained. Comparison: Comparison is made to chest radiograph 06/19/2019 FINDINGS: No lines and tubes are seen. Aortic valvular prosthesis is seen. The lungs are clear. No evidence of pleural effusion or pneumothorax. IMPRESSION: No acute chest disease. Cardiomegaly is noted. ACT 112: Negative or not required by law. Electronically signed by: Alex Colon M.D. 02/05/2024 3:22 PM
[2024-02-05 15:32] LABS: Basophils # (auto) 0.05 K/uL (0.00-0.20); Basophils % (auto) 0.5 %; Eosinophils # (auto) 0.23 K/uL (0.00-0.50); Eosinophils % (auto) 2.5 %; Hematocrit (blood only) 41.9 % (42.0-52.0); Immature Granulocytes # (auto) 0.02 K/uL (0.01-0.20); Immature Granulocytes % (auto) 0.2 %; Lymphocytes # (auto) 2.03 K/uL (1.20-3.40); Lymphocytes % (auto) 21.8 %; Mean Corpuscular Hemoglobin 29.4 pg (25.0-34.0); Mean Corpuscular Hgb Conc 33.4 g/dL (32.0-36.0); Mean Corpuscular Volume 87.8 fL (80.0-100.0); Monocytes # (auto) 0.61 K/uL (0.11-0.59); Monocytes % (auto) 6.6 %; Neutrophils # (auto) 6.37 K/uL (1.40-6.50); Neutrophils % (auto) 68.4 %; Platelet Count 372 K/uL (130-400); RDW Coefficient of Variation 13.2 % (11.5-14.5); RDW Standard Deviation 41.7 fL (36.4-46.3); Red Blood Count 4.77 M/uL (4.70-6.10); White Blood Count 9.31 K/ul (4.8-10.8)
[2024-02-05 15:36] LABS: INR 1.1 (0.9-1.1); Partial Thromboplastin Ratio 0.9; Partial Thromboplastin Time 24 Seconds (21-31); Prothrombin Time 11.7 Seconds (9.0-12.0)
[2024-02-05 15:45] LABS: Albumin Globulin Ratio 1.4 (0.9-2); BUN Creatinine Ratio 30.3 (10-20); Bilirubin,Total 0.7 mg/dl (0.2-1.0); Creatinine Clr Calc Pharmacy 100.9 ml/min; Est GFR (African American) 83.3 ml/min; Est GFR (Non-African American) 71.9 ml/min; Globulin 2.8 gm/dl (2.5-4.0); Magnesium 2.2 mg/dl (1.7-2.4); Potassium 4.3 mmol/L (3.5-5.1); Total Protein 6.8 gm/dl (6.0-8.3)
[2024-02-05 15:49] LABS: Troponin I High Sensitivity 23.7 pg/ml (0-20)
[2024-02-05 15:59] LABS: Thyroid Stimulating Hormone 2.084 uIu/ml (0.300-4.500)
[2024-02-05] MEDS: FUROSEMIDE 40 MG/4 ML VIAL IV ONE (16:41)
--- NOTE | 2024-02-05 16:52 | History & Physical Report ---
Date of Service February 05, 2024 Assessment & Plan (1) Atrial fibrillation with RVR: Plan: A-fib with RVR With fluid accumulation worsening over the last 10 days, worsened orthopnea and swelling especially in the last 48 hours - Patient's home metoprolol is 100 mg a.m., 50 mg p.m. no missed doses - 12 pounds of weight gain over 2 weeks. Pedal edema has developed along with orthopnea. - Chest x-ray with cardiomegaly, no acute findings - CBC unremarkable, he does not have an SAUD, does have a new acute mild transaminitis. Troponin elevated at 23.7, repeat pending - BNP elevated at 501 -Took his morning metoprolol; while in the ER patient received oral metoprolol 2 5 x 1, and 2x metoprolol 5 mg IV pushes with some improvement in rate remains in 120s at time of assessment Hopefully rate will improve diuresis, combined with metoprolol as noted. Last echo 2018 with EF of 50-55%, will repeat echo to evaluate for reduced ejection fraction/rate related cardiomyopathy. If EF preserved reasonable --> adjunct diltiazem. If needs additional rate control overnight prior to echo being available would be very cautious with diltiazem due to risk of potentiated AV block with BB/CCB combination. No history of tachybrady syndrome. he is anticoagulated and compliant with this, and has no renal dysfunction. Amio and dig both potential options as well. Will order echo. If EF is significantly abnormal of unable achieve rate control with diuresis/beta-han/CCB --> consult cardiology EKG independently reviewed. A-fib RVR, no territorial ST segment changes/T wave changes noted. (2) BPH (benign prostatic hyperplasia): Plan: BPH Previously discontinued Flomax. Patient endorses he can void but has a weaker stream than normal in the last few weeks Resumed Flomax. Discussed with nursing staff. 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 No hypotension with his RVR on presentation (4) Transaminitis: Plan: - AST, ALT, alk phos all acutely elevated. Bilirubin is normal Patient reports that he has had intermittent right upper quadrant abdominal pain which he attributed to his fall but notes that food does make this worse and his bowel movements have been unusually light in color Denies fever, chills, sweats. He does not have a leukocytosis or fever. Stat ultrasound gallbladder ordered to evaluate for acute robina --> normal. Suggest 2/2 perfusion/congestion with volume overload and afib Plan DVT prophylaxis: Anticoagulated Disposition: PCU CODE STATUS: Full Diet: Heart healthy History of Present Illness Primary Care Provider: Anam Almanzar DO Inder Valenzuela is a 63-year-old male with a past medical history of atrial flutter on apixaban, hypertension well-controlled on metoprolol, PVCs who was seen by his PCP for shortness of breath. Patient reports he did fall off a truck several weeks ago and injured his ribs, had an x-ray with his chiropractor which was normal however after the last 2 weeks has had progressive dyspnea rapidly worsening over the last 2 days. Endorses orthopnea. At the PCP he was found to have A-fib with RVR and was referred to the emergency department for further care. Lloyd is seen at the bedside with his . He reports that he fell out of a truck a few weeks ago and did have some back/flank pain which has improved. After this about 10 days ago he reports that he started to feel more tired on exertion and started to have weight gain in his legs. Over the last 7 days he has also had some shortness of breath laying flat, easier fatigue/exertional dyspnea, and tense leg swelling. He has not had chest pain at any point. He has no pain with deep breathing. He is compliant with his Eliquis and has not missed any doses. He is taking metoprolol 100 mg a.m., 50 mg p.m. and has not missed any doses of this; he also took his morning metoprolol today. He notes that he did run out of this last month. No sleep apnea. Reports he wakes up rested and does not have problems with morning fatigue outside of the last 2 weeks with his weight gain Medical History: Reviewed Medications: Reviewed Surgical History: Reviewed Family history: Reviewed Allergies: Reviewed Social History: No tobacco or alcohol use Code Status: Full code Allergies Allergy/AdvReac Type Severity Reaction Status Date / Time Penicillins Allergy Mild Rash Verified 02/05/24 13:17 COURTNEY Inhibitors AdvReac Cough Verified 02/05/24 13:17 Home Medications Medication Instructions Recorded Confirmed Type omeprazole 20 mg capsule,delayed 20 mg PO QAM 03/12/19 02/05/24 History release multivitamin 1 tab PO QAM 06/19/19 02/05/24 History omega 3-cfy-zoz-fish oil 1,000 mg 1 cap PO QAM 06/19/19 02/05/24 History (120 mg-180 mg) capsule (Fish Oil) apixaban 5 mg tablet (Eliquis) 5 mg PO BID #180 tabs 10/30/23 02/05/24 Rx atorvastatin 40 mg tablet 40 mg PO QAM 90 days #90 tabs 10/30/23 02/05/24 Rx Super Beta-Prostate 1 dose PO QAM 02/05/24 02/05/24 History ascorbic acid (vitamin C) 1,000 mg 1 g PO QAM 02/05/24 02/05/24 History tablet (Vitamin C) metoprolol succinate 50 mg See Rx Instructions .Route .COMPLEX 02/05/24 02/05/24 History tablet,extended release 24 hr Past Med/Surg History Medical History Umbilical hernia BPH (benign prostatic hyperplasia) GERD (gastroesophageal reflux disease) Atrial flutter dx 1 month ago - [place] [facility] - follows w/ Dr. Tang - on Eliquis + metoprolol Shingles Hypertension Hypercholesterolemia Surgical History History of colonoscopy (09/07/19) Dr. Mason, 2 transverse colon and ascending colon polyps lymphoid aggregates, diverticulosis of sigmoid colon, nonbleeding internal hemorrhoids. Recheck 10 years History of ankle surgery Lt History of hand surgery BL History of tooth extraction Family History Grandfather No problems noted. Aunt Coronary heart disease Uncle Coronary heart disease Myocardial infarction Father Hx of CABG Myocardial infarction Grandfather (Maternal) Prostate cancer Other No significant family history Denies family history of Ovarian cancer Breast cancer Colorectal cancer Social History Smoking Status: Never smoker Second Hand Exposure: No; Do You Dip or Chew Tobacco: No; Hx Alcohol Use: No Hx Substance Use: No Preferred Language: Romanian Communication Ability: Effective Oven Tender Required: No Beliefs That Will Affect Care: None marital status: Current Living Situation: Spouse current occupational status: employed 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 NAD. Cooperative. HEENT: Atraumatic, normocephalic. Vision and hearing is grossly intact Pulm: CTAB A&P. -wheezes, -rales, -rhonchi. Symmetrical chest rise. No increased work of breathing. No respiratory distress. Cardiac: irir, tachy 110-130s at time of assessment. Radial pulses intact and symmetrical. +JVD Abdominal: Softly distended. Bs present. NT. No guarding. Endorses right upper quadrant mild discomfort but that palpation does not seem to make this significantly worse/negative Valdez's. Ext: +bilat 1-2+ pitting edema Results & Data Results & Data Vital Signs (Past 12 Hours) Vital Signs Temp Pulse Resp BP Pulse Ox O2 Del Method 02/05/24 16:30 137/112 H 02/05/24 16:30 127 H 33 H 97 Room Air 02/05/24 16:15 123 H 150/126 H 02/05/24 16:00 150/126 H 02/05/24 16:00 113 H 32 H 02/05/24 15:31 133 H 27 H 96 Room Air 02/05/24 15:31 144/115 H 02/05/24 15:30 117 H 32 H 95 02/05/24 15:10 147 H 141/113 H 02/05/24 15:10 151 H 02/05/24 15:03 151 H 26 H 94 02/05/24 14:08 36.8 C 124 H 18 157/91 H 95 Room Air PG Care Time/CCT Total # of Minutes Spent Total Time Spent with Patient: Total time spent is greater than 50% in coordination of care (as documented) at patient's floor/unit and/or counseling patient: Coding Level of Care Code 93958 INT INP/OBS CARE 3/75MIN Diagnoses Atrial fibrillation with RVR I48.91 BPH (benign prostatic hyperplasia) N40.0 Primary hypertension I10 Hypertension type: primary hypertension Transaminitis R74.01 (3) Hypertension Hypertension type: primary hypertension Qualified Code(s): I10 - Essential (primary) hypertension
[2024-02-05] MEDS: dilTIAZem HCl 5 MG/ML 5 ML VIAL IV STA (20:01)
--- NOTE | 2024-02-05 20:02 | Ultrasound Report ---
Exam(s): US LIVER EXAM: US Abdomen Limited, Right Upper Quadrant CLINICAL HISTORY: Reason for exam: RUQ pain w meals, tranaminitis. robina eval.. TECHNIQUE: Real-time ultrasound of the right upper quadrant with image documentation. COMPARISON: No relevant prior studies available. FINDINGS: Liver: Liver measures 18 cm. Normal echogenicity. No focal lesion. Gallbladder: No stones in the gallbladder. No inflammatory changes. Common bile duct: Common bile duct is obscured by shadowing bowel gas. Pancreas: Unremarkable as visualized. Right kidney: Cortical cysts within the mid pole of the right kidney measuring 3.9 x 3.1 cm. Pleural space: Pleural effusion present on the right. IMPRESSION: No sonographically evident acute abnormality in the right upper quadrant. Electronically signed by: Jose Tamayo MD 02/05/24 20:02 PM
[2024-02-05 20:14] LABS: Appearance Urine Clear (Clear); Bilirubin Urine Negative (Negative); Blood Urine Negative (Negative); Color Urine Yellow; Glucose Urine UA Negative (Negative); Ketones Urine Negative (Negative); Leukocyte Esterase Urine Negative (Negative); Nitrite Urine Negative (Negative); Protein Urine Negative (Negative); Specific Gravity Urine 1.009 (1.000-1.030); Urobilinogen Urine Negative (Negative); pH Urine 6.5 (4.5-7.5)
[2024-02-05] MEDS: dilTIAZem HCL 125 MG in DEXTROSE 5% 100 ML IV SCH (21:22)
[2024-02-05] MEDS: STAT IV Infusion **Titration per Protocol STA (21:24)
[2024-02-05] MEDS ORDERED: ACETAMINOPHEN 325 MG TAB PO PRN (21:58)
[2024-02-05] MEDS ORDERED: METOPROLOL SUCC 50MG EXT REL TAB PO SCH (21:58)
[2024-02-05] MEDS: APIXABAN 5 MG TABLET PO SCH (22:50)
[2024-02-06 06:32] LABS: Basophils # (auto) 0.05 K/uL (0.00-0.20); Basophils % (auto) 0.5 %; Eosinophils # (auto) 0.32 K/uL (0.00-0.50); Eosinophils % (auto) 3.3 %; Hematocrit (blood only) 43.3 % (42.0-52.0); Hemoglobin 14.7 g/dl (14.0-18.0); Immature Granulocytes # (auto) 0.03 K/uL (0.01-0.20); Immature Granulocytes % (auto) 0.3 %; Lymphocytes # (auto) 2.46 K/uL (1.20-3.40); Lymphocytes % (auto) 25.6 %; Mean Corpuscular Hemoglobin 29.6 pg (25.0-34.0); Mean Corpuscular Hgb Conc 33.9 g/dL (32.0-36.0); Mean Corpuscular Volume 87.3 fL (80.0-100.0); Mean Platelet Volume 9.8 fL (9.4-12.4); Monocytes # (auto) 0.69 K/uL (0.11-0.59); Monocytes % (auto) 7.2 %; Neutrophils # (auto) 6.06 K/uL (1.40-6.50); Neutrophils % (auto) 63.1 %; Platelet Count 353 K/uL (130-400); RDW Coefficient of Variation 13.2 % (11.5-14.5); RDW Standard Deviation 40.9 fL (36.4-46.3); Red Blood Count 4.96 M/uL (4.70-6.10); White Blood Count 9.61 K/ul (4.8-10.8)
[2024-02-06 07:27] LABS: Albumin Globulin Ratio 1.5 (0.9-2); Albumin Level 3.9 gm/dl (3.4-5.0); BUN Creatinine Ratio 29.2 (10-20); Bilirubin,Total 1.2 mg/dl (0.2-1.0); Calcium 9.1 mg/dl (8.6-10.3); Creatinine Clr Calc Pharmacy 101.6 ml/min; Est GFR (African American) 86.1 ml/min; Est GFR (Non-African American) 74.3 ml/min; Globulin 2.6 gm/dl (2.5-4.0); Potassium 3.7 mmol/L (3.5-5.1); Total Protein 6.5 gm/dl (6.0-8.3)
[2024-02-06] MEDS: METOPROLOL SUCC 50MG EXT REL TAB PO SCH ×2 (08:06→20:20)
[2024-02-06] MEDS: MULTIVITAMIN TAB PO SCH (08:07)
[2024-02-06] MEDS: FUROSEMIDE 40 MG/4 ML VIAL IV SCH (08:07)
[2024-02-06] MEDS: PANTOprazole 40 MG TAB PO SCH (08:07)
[2024-02-06] MEDS: OMEGA-3 (PURIFIED FISH OIL) 1 GM CAP PO SCH (08:07)
[2024-02-06] MEDS: ASCORBIC ACID 500 MG TAB PO SCH (08:07)
[2024-02-06] MEDS: ATORVASTATIN 40 MG TAB PO SCH (08:07)
[2024-02-06 08:33] LABS: Magnesium 2.1 mg/dl (1.7-2.4)
[2024-02-06] MEDS: DOCUSATE SODIUM 100 MG CAP PO ONE (11:53)
--- NOTE | 2024-02-06 17:21 | XCELERA ---
[id number] \\[id number]
--- NOTE | 2024-02-06 18:03 | Hospitalist Progress Note ---
Date of Service February 06, 2024 Assessment & Plan (1) Atrial fibrillation with RVR: Plan: Acute systolic HF likely due to Afib with RVR A-fib with RVR With fluid accumulation worsening over the last 10 days, worsened orthopnea and swelling especially in the last 48 hours prior to admission. With weight gain of 12 pounds in 2 weeks - home regiment metoprolol is 100 mg a.m., 50 mg p.m - reports no missed doses - Chest x-ray with cardiomegaly, no acute findings - CBC unremarkable, Troponin elevated at 23.7, repeat stable - BNP elevated at 501 - Received IV metoprolol in the ER with still elevated Rates was started on cardizem drip - rates have improved with increased titration of Cardizem drip however question will continue this given current EF - Echo (resulted late 02/05): EF 35-40, global hypokinesis --> given this will consult cardiology cardiology consulted, appreciate recs (2) BPH (benign prostatic hyperplasia): Plan: per chart review, patient has had elevated PSA on multiple occasions but has refused to see urology Previously discontinued Flomax because it made him feel dizzy --> plan to restart Flomax with hold parameters based on SBP Patient endorses he can void but has a weaker stream than normal in the last few weeks Continue every shift postvoid residuals, if patient is having significant retention/PVR greater than 300 may cath patient feels like he is urinating more than he normally does, however has Lasix on board (3) Hypertension: Plan: continue home metoprolol Currently on Cardizem drip monitor blood pressures with the addition of Flomax (4) Transaminitis: Plan: - AST, ALT, alk phos all acutely elevated. Bilirubin is normal Patient reports that he has had intermittent right upper quadrant abdominal pain which he attributed to his fall but notes that food does make this worse and his bowel movements have been unusually light in color Denies fever, chills, sweats. He does not have a leukocytosis or fever. Stat ultrasound gallbladder ordered to evaluate for acute robina --> normal. Suggest 2/2 perfusion/congestion with volume overload and afib Plan DVT prophylaxis: continue home Eliquis Disposition: continued inpatient stay, cardiology consulted this evening after results of echo family updated at bedside Admission and Anticipated Discharge Date Admission Date: February 05, 2024 Supervising Physician Co-Signing Physician Notes Attending Attestation - Chart reviewed, care plan d/w TREVOR Muñoz. I agree w/ the benites components of her documentation. Cont efforts to improve a.fib rate control. Appreciate cardiology consultation. Ben Street MD Subjective patient seen late this afternoon, present at bedside. reports feeling well currently. Denies any symptoms of racing heart or palpitations in the last few days. Only complaint has been shortness of breath, this has been progressing over the last 2 weeks. No recent viral illnesses or fevers or chills. About 3-1/2 weeks ago did have a traumatic fall with some bruised ribs that altered his sleep, however this occurred approximately 3 days prior to his last cardiology visit with Dr. Noel, and had an EKG during that visit that showed he was in sinus rhythm. Patient reports decreased appetite over the last few days. at bedside reports that his face and abdomen already look less full/swollen telemetry A-fib with PVCs 90s to 110s Review of Systems Review of Systems: All systems reviewed & are unremarkable except as noted in Subjective Physical Exam Physical Exam: General: NAD, VS as above Resp: normal respiratory effort, lungs clear to auscultation CV: A-fib, no murmur, Abd: normal bowel sounds, mildly distended,non tender, no hepatosplenomegaly Extremities: Moves all extremities, mild nonpitting edema in the lower ext remities Neuro: A&O x3, Skin: intact, no lesions noted Results & Data Results & Data Vital Signs (Past 12 Hours) Vital Signs Temp Pulse Resp BP Pulse Ox O2 Del Method 02/06/24 16:00 36.6 C 73 17 134/95 93 Room Air 02/06/24 11:33 36.5 C 77 18 144/108 H 97 Room Air 02/06/24 07:45 36.8 C 88 17 150/87 H 95 Room Air Laboratory Results CBC and chemistry reviewed Diagnostic Findings echo reviewed PG Care Time/CCT Total # of Minutes Spent Total Time Spent with Patient: Total time spent is greater than 50% in coordination of care (as documented) at patient's floor/unit and/or counseling patient: Coding Level of Care Code 37103 SUB INP/OBS CARE 3/50MIN Diagnoses Atrial fibrillation with RVR I48.91 BPH (benign prostatic hyperplasia) N40.0 Primary hypertension I10 Hypertension type: primary hypertension Transaminitis R74.01 (3) Hypertension Hypertension type: primary hypertension Qualified Code(s): I10 - Essential (primary) hypertension
[2024-02-06] MEDS: DOCUSATE SODIUM 100 MG CAP PO SCH (20:20)
[2024-02-06] MEDS: TAMSULOSIN HCL 0.4 MG CAP PO SCH (20:20)
[2024-02-07 04:56] LABS: Basophils # (auto) 0.05 K/uL (0.00-0.20); Basophils % (auto) 0.6 %; Eosinophils # (auto) 0.45 K/uL (0.00-0.50); Eosinophils % (auto) 5.6 %; Hematocrit (blood only) 38.7 % (42.0-52.0); Immature Granulocytes # (auto) 0.02 K/uL (0.01-0.20); Immature Granulocytes % (auto) 0.2 %; Lymphocytes % (auto) 26.1 %; Mean Corpuscular Hemoglobin 29.1 pg (25.0-34.0); Mean Corpuscular Hgb Conc 33.6 g/dL (32.0-36.0); Mean Corpuscular Volume 86.6 fL (80.0-100.0); Mean Platelet Volume 9.7 fL (9.4-12.4); Monocytes # (auto) 0.62 K/uL (0.11-0.59); Monocytes % (auto) 7.7 %; Neutrophils # (auto) 4.82 K/uL (1.40-6.50); Neutrophils % (auto) 59.8 %; Platelet Count 320 K/uL (130-400); Red Blood Count 4.47 M/uL (4.70-6.10); White Blood Count 8.06 K/ul (4.8-10.8)
[2024-02-07 05:05] LABS: Albumin Globulin Ratio 1.4 (0.9-2); Albumin Level 3.6 gm/dl (3.4-5.0); BUN Creatinine Ratio 31.1 (10-20); Bilirubin,Total 1.2 mg/dl (0.2-1.0); Calcium 8.8 mg/dl (8.6-10.3); Creatinine Clr Calc Pharmacy 104.5 ml/min; Est GFR (African American) 89.2 ml/min; Est GFR (Non-African American) 76.9 ml/min; Globulin 2.5 gm/dl (2.5-4.0); Potassium 3.4 mmol/L (3.5-5.1); Total Protein 6.1 gm/dl (6.0-8.3)
--- NOTE | 2024-02-07 06:12 | Electrocardiogram Report ---
Test Reason : Blood Pressure : / mmHG Vent. Rate : 130 BPM Atrial Rate : 120 BPM P-R Int : 000 ms QRS Dur : 102 ms QT Int : 326 ms P-R-T Axes : 000 010 105 degrees QTc Int : 479 ms Atrial fibrillation with rapid ventricular response with premature ventricular or aberrantly conducte d complexes Nonspecific T wave abnormality Abnormal ECG When compared with ECG of 19-JAN-2024 12:07, Atrial fibrillation has replaced Sinus rhythm Nonspecific T wave abnormality, worse in Lateral leads Confirmed by Ronaldo Anton ([id number]) on 02/07/2024 6:12:03 AM Referred By: REFERRED SELF Confirmed By:Ronaldo Anton
[2024-02-07] MEDS: POTASSIUM CHLORIDE CRTAB 20 MEQ TABCR PO STA (09:32)
--- NOTE | 2024-02-07 10:40 | Cardiology Consultation ---
Date of Consultation February 07, 2024 Assessment & Plan (1) Atrial fibrillation with rapid ventricular response: (2) SOB (shortness of breath): (3) Elevated troponin: (4) Cardiomyopathy: Plan 1. Atrial fibrillation: He has a history of atrial flutter, but the current rhythm appears to be more consistent with atrial fibrillation. Unclear if his recent sleep deprivation possibly precipitated an episode. However, he does have some dilated atria and therefore is likely predispose to atrial arrhythmias. He was started on a diltiazem infusion and continued on oral metoprolol. Ideally given his cardiomyopathy we would avoid diltiazem, this may be necessary for adequate rate control which could be the etiology behind his reduced LV function. I will increase his metoprolol this evening. Will try to wean the diltiazem infusion. He can continue his systemic anticoagulation and if he continues to have atrial fibrillation on Friday we could consider cardioversion as well. Given his mild right ventricular dilation and atrial fibrillation he is a good candidate for BELKIS screening. 2. Dyspnea on exertion: Possibly related to atrial fibrillation in the associated high ventricular rates. Also possibly related to his new LV dysfunction an element of pulmonary vascular congestion. Lung examination relatively benign today. X-ray did not demonstrate gross pulmonary edema. However, he did report a weight gain and has some element of edema. I think it is worth continuing his diuresis. 3. Cardiomyopathy: This is new. Possibly related to atrial fibrillation in the associated high rates over a few weeks. However, also possibly an alternate etiology. No symptoms suggestive of a recent ischemic event. I do not believe his troponin elevation is likely related to a recent event. Will continue him on metoprolol succinate, control his heart rate and at some point return him to a sinus rhythm. In the absence of symptoms, I would favor period of observation before adding more aggressive therapy given the possibility this is rate related. I do not think he needs urgent ischemic evaluation. 4. Elevated troponin: Very mild elevation. Not indicative of recent acute coronary syndrome. No symptoms to suggest an acute coronary syndrome. Likely just related to his decompensated heart failure and atrial fibrillation. 5. Mitral regurgitation: Mild. This was seen on an echocardiogram previously. We can follow this over time. History of Present Illness Reason for Consultation: Atrial fibrillation, dyspnea on exertion Requesting Physician: Wanda Attending Physician: Ben Street MD History of Present Illness The patient is a 63-year-old gentleman with a remote history of atrial flutter who presented to his primary care physician's office yesterday with symptoms of progressive dyspnea on exertion. Patient was noted at that time to have atrial fibrillation and rapid ventricular response and sent to the emergency room where he was evaluated and admitted to the hospital. It seems that several weeks ago the patient did suffer a fall onto his back. This resulted in a noncritical injury but significant discomfort. As result, the patient has not been sleeping well and has had some difficulty finding a c omfortable position at nighttime. 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 At that time he was noted to be in a sinus rhythm and was not known to have symptoms of significant dyspnea or palpitation. However, over the past couple of weeks the patient has noted some progressive dyspnea, lower extremity edema, increasing abdominal girth and weight gain. He generally has not been aware of an elevated heart rate or palpitations. He denies dizziness or lightheadedness. No chest pain of any nature. Generally speaking the patient is quite active. 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 He did not report limitations leading up to these episodes. He did not report any exertional chest pain or chest pain at rest. Generally speaking not short of breath. Allergies Allergy/AdvReac Type Severity Reaction Status Date / Time Penicillins Allergy Mild Rash Verified 02/05/24 13:17 COURTNEY Inhibitors AdvReac Cough Verified 02/05/24 13:17 Home Medications Medication Instructions Recorded Confirmed Type omeprazole 20 mg capsule,delayed 20 mg PO QAM 03/12/19 02/05/24 History release multivitamin 1 tab PO QAM 06/19/19 02/05/24 History omega 4-exl-mkn-fish oil 1,000 mg 1 cap PO QAM 06/19/19 02/05/24 History (120 mg-180 mg) capsule (Fish Oil) apixaban 5 mg tablet (Eliquis) 5 mg PO BID #180 tabs 10/30/23 02/05/24 Rx atorvastatin 40 mg tablet 40 mg PO QAM 90 days #90 tabs 10/30/23 02/05/24 Rx Super Beta-Prostate 1 dose PO QAM 02/05/24 02/05/24 History ascorbic acid (vitamin C) 1,000 mg 1 g PO QAM 02/05/24 02/05/24 History tablet (Vitamin C) metoprolol succinate 50 mg See Rx Instructions .Route .COMPLEX 02/05/24 02/05/24 History tablet,extended release 24 hr Patient History Medical History Umbilical hernia BPH (benign prostatic hyperplasia) GERD (gastroesophageal reflux disease) Atrial flutter dx 1 month ago - [place] [facility] - follows w/ Dr. Tang - on Eliquis + metoprolol Shingles Hypertension Hypercholesterolemia Surgical History History of colonoscopy (09/07/19) Dr. Mason, 2 transverse colon and ascending colon polyps lymphoid aggregates, diverticulosis of sigmoid colon, nonbleeding internal hemorrhoids. Recheck 10 years History of ankle surgery Lt History of hand surgery BL History of tooth extraction Family History Grandfather No problems noted. Aunt Coronary heart disease Uncle Coronary heart disease Myocardial infarction Father Hx of CABG Myocardial infarction Grandfather (Maternal) Prostate cancer Other No significant family history Denies family history of Ovarian cancer Breast cancer Colorectal cancer Social History Smoking Status: Never smoker Second Hand Exposure: No; Do You Dip or Chew Tobacco: No; Hx Alcohol Use: No Hx Substance Use: No Preferred Language: Tristanian Communication Ability: Effective Die Engraver Required: No Beliefs That Will Affect Care: None marital status: Current Living Situation: Spouse current occupational status: employed 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 Mood and affect appeared normal. He answered all questions appropriately. HEENT: Pupils are equal and reactive to light and accommodation. Extraocular movements are intact. The sclerae are anicteric. Neuro: Cranial nerves intact Lungs: Clear to auscultation bilaterally. He has good air movement without use of accessory muscles. No rales wheezes or rhonchi. Cardiac: Heart demonstrates an irregular rhythm and normal rate. Normal S1 and S2. No murmurs on examination. Pulses: The patient has palpable radial pulses bilaterally that are equal in intensity Extremities: There was no evidence of hypoperfusion. There is no cyanosis or clubbing. Mild bilateral lower extremity edema Skin: I did not appreciate any rashes on examination today. Results & Data Vital Signs (Past 12 Hours) Vital Signs Temp Pulse Pulse Resp BP Pulse Ox O2 Del Method 02/07/24 08:02 36.5 C 93 H 18 134/84 93 Room Air 02/07/24 03:37 36.5 C 94 H 18 134/91 92 Room Air 02/06/24 23:18 111 H 02/06/24 22:59 36.8 C 87 18 135/93 95 Room Air Laboratory Results Abnormal Lab Results 02/07/24 04:01 WBC 8.06 RBC 4.47 L Hgb 13.0 L Hct 38.7 L MCV 86.6 MCH 29.1 MCHC 33.6 RDW Std Deviation 40.0 RDW Coeff of Silver 13.0 Plt Count 320 MPV 9.7 Immature Gran % (Auto) 0.2 Neut % (Auto) 59.8 Lymph % (Auto) 26.1 [place] % (Auto) 7.7 Eos % (Auto) 5.6 Baso % (Auto) 0.6 Neut # (Auto) 4.82 Lymph # (Auto) 2.10 [place] # (Auto) 0.62 H Eos # (Auto) 0.45 Baso # (Auto) 0.05 Immature Gran # (Auto) 0.02 Sodium 138 Potassium 3.4 L Chloride 104 Carbon Dioxide 28 Anion Gap 6 BUN 32 H Creatinine 1.03 Est Cr Clr Drug Dosing 104.5 Est GFR ( Amer) 89.2 Est GFR (Non-Af Amer) 76.9 BUN/Creatinine Ratio 31.1 H Glucose 116 H Calcium 8.8 Total Bilirubin 1.2 H AST 26 ALT 94 H Alkaline Phosphatase 113 H Total Protein 6.1 Albumin 3.6 Globulin 2.5 Albumin/Globulin Ratio 1.4 Diagnostic Findings Echocardiogram obtained 02/06/2024: Mildly dilated left ventricle with moderately do still V systolic function, ejection fraction 35-40%. Moderate LVH. Moderate biatrial dilation. Mild mitral regurgitation. Mildly dilated right ventricle and mildly reduced right ventricular systolic function. Mild pulmonary hypertension. Chest x-ray demonstrated cardiomegaly without acute pulmonary vascular congestion Liver ultrasound was also performed did not reveal any acute abnormality in the right upper quadrant. ECG Additional Comments: Time admission revealed atrial fibrillation rapid ventricular response. Some aberrant conduction versus PVCs. PG Care Time/CCT Total # of Minutes Spent Total Time Spent with Patient: Total time spent is greater than 50% in coordination of care (as documented) at patient's floor/unit and/or counseling patient: Coding Level of Care Code 01032 INT INP/OBS CARE 3/75MIN Diagnoses Atrial fibrillation with rapid ventricular response I48.91 SOB (shortness of breath) R06.02 Elevated troponin R79.89 Cardiomyopathy I42.9
[2024-02-07] MEDS ORDERED: POLYETHYLENE (MIRALAX) 17 GM PACK PO PRN (12:36)
--- NOTE | 2024-02-07 13:40 | Hospitalist Progress Note ---
Date of Service February 07, 2024 Assessment & Plan (1) Atrial fibrillation with RVR: Plan: Acute systolic HF likely due to Afib with RVR A-fib with RVR With fluid accumulation worsening over the last 10 days, worsened orthopnea and swelling especially in the last 48 hours prior to admission. With weight gain of 12 pounds in 2 weeks - home regiment metoprolol is 100 mg a.m., 50 mg p.m - reports no missed doses - Chest x-ray with cardiomegaly, no acute findings - CBC unremarkable, Troponin elevated at 23.7, repeat stable - BNP elevated at 501 - contnue Lasix 40mg IV - not on home diuretic - Received IV metoprolol in the ER with still elevated Rates was started on cardizem drip - rates have improved with increased titration of Cardizem drip however question will continue this given current EF - Echo (resulted late 02/05): EF 35-40, global hypokinesis --> given this will consult cardiology cardiology consulted, appreciate recs - continue Cardizem drip, will increase metoprolol p.m. dose to 100mg (ordered) with attempt to wean Cardizem drip - continue diuresis - recommend outpatient sleep study - possible cardioversion on Friday if continues in atrial fibrillation AM BMP (2) BPH (benign prostatic hyperplasia): Plan: per chart review, patient has had elevated PSA on multiple occasions but has refused to see urology Previously discontinued Flomax because it made him feel dizzy --> plan to restart Flomax with hold parameters based on SBP Patient endorses he can void but has a weaker stream than normal in the last few weeks Continue every shift postvoid residuals, if patient is having significant retention/PVR greater than 300 consider cath PVR has decreased with initiation of Flomax, no lightheadedness or dizziness. Will continue (3) Hypertension: Plan: continue home metoprolol Currently on Cardizem drip monitor blood pressures with the addition of Flomax (4) Transaminitis: Plan: - AST, ALT, alk phos all acutely elevated. Bilirubin is normal Patient reports that he has had intermittent right upper quadrant abdominal pain which he attributed to his fall but notes that food does make this worse and his bowel movements have been unusually light in color Denies fever, chills, sweats. He does not have a leukocytosis or fever. Stat ultrasound gallbladder ordered to evaluate for acute robina --> normal. Suggest 2/2 perfusion/congestion with volume overload and afib Improving Plan DVT prophylaxis: continue home Eliquis Disposition: continued inpatient stay,continued cardizem drip family updated at bedside Discussed case with Dr. Pennington, cardiology Admission and Anticipated Discharge Date Admission Date: February 05, 2024 Supervising Physician Co-Signing Physician Notes Attending Attestation - Chart reviewed, care plan d/w TREVOR Muñoz. I agree w/ the benites components of her documentation. Ben Street MD Subjective patient seen sitting up in the chair, again present at bedside. States that he continues to have increased urine stream. Discussed that I restarted his Flomax yesterday no lightheadedness or dizziness currently. States he does not remember if he was taking this in the morning or afternoon. We also discussed finasteride and he does not think he is ever been on this or anything similar no new symptoms with the increasing heart rate or continued A-fib telemetry A-fib 80s to 110s Review of Systems Review of Systems: All systems reviewed & are unremarkable except as noted in Subjective Physical Exam Physical Exam: General: NAD, VS as above Resp: normal respiratory effort, lungs clear to auscultation CV: A-fib, no murmur, Abd: normal bowel sounds, soft ,non tender, no hepatosplenomegaly Extremities: Moves all extremities, mild nonpitting edema in the lower extremities - improving Neuro: A&O x3, Skin: intact, no lesions noted Results & Data Results & Data Vital Signs (Past 12 Hours) Vital Signs Temp Pulse Pulse Resp BP Pulse Ox O2 Del Method 02/07/24 12:14 36.6 C 89 20 126/88 95 Room Air 02/07/24 10:41 101 H 02/07/24 08:02 36.5 C 93 H 18 134/84 93 Room Air 02/07/24 03:37 36.5 C 94 H 18 134/91 92 Room Air Laboratory Results CBC and chemistry reviewed PG Care Time/CCT Total # of Minutes Spent Total Time Spent with Patient: Total time spent is greater than 50% in coordination of care (as documented) at patient's floor/unit and/or counseling patient: Coding Level of Care Code 62780 SUB INP/OBS CARE 3/50MIN Diagnoses Atrial fibrillation with RVR I48.91 BPH (benign prostatic hyperplasia) N40.0 Primary hypertension I10 Hypertension type: primary hypertension Transaminitis R74.01 (3) Hypertension Hypertension type: primary hypertension Qualified Code(s): I10 - Essential (primary) hypertension
[2024-02-07] MEDS: METOPROLOL SUCC 50MG EXT REL TAB PO SCH (20:40)
[2024-02-08 07:38] LABS: Albumin Globulin Ratio 1.4 (0.9-2); Albumin Level 3.7 gm/dl (3.4-5.0); BUN Creatinine Ratio 21.5 (10-20); Creatinine Clr Calc Pharmacy 116.4 ml/min; Est GFR (African American) 100.9 ml/min; Est GFR (Non-African American) 87.1 ml/min; Globulin 2.6 gm/dl (2.5-4.0); Potassium 3.9 mmol/L (3.5-5.1); Total Protein 6.3 gm/dl (6.0-8.3)
--- NOTE | 2024-02-08 09:04 | Cardiology Progress Note ---
Date of Service February 08, 2024 Assessment & Plan (1) Atrial fibrillation with rapid ventricular response: (2) SOB (shortness of breath): (3) Elevated troponin: (4) Cardiomyopathy: Plan 1. Atrial fibrillation: Still in atrial fibrillation. Rates improved but still on diltiazem infusion. Metoprolol increased last evening. I think are most immediate strategy would involve a cardioversion. No make him NPO after midnight and will plan a cardioversion in the morning. Subsequently we can decide on medical regimen for discharge. He will continue systemic anticoagulation. 2. Dyspnea on exertion: Improving. Will continue his diuresis. 3. Cardiomyopathy: Hopefully related to elevated rates over couple of weeks. I do not think will be very aggressive with treatment until we can return him to sinus rhythm and monitor his response over a few weeks. Will continue on his metoprolol decide if he requires a diuretic at the time of discharge. 4. Elevated troponin: No ACS. No current plans for ischemic evaluation. 5. Mitral regurgitation: Mild. Admission and Anticipated Discharge Date Admission Date: February 05, 2024 Subjective This morning the patient claimed to be feeling well. He has been ambulatory around his room. He did not describe limiting dyspnea. No dizziness or lightheadedness. No sense of palpitation. He feels that his lower extremity edema is improved. Review of Systems Review of Systems: Per HPI Physical Exam Physical Exam: The patient is alert and oriented. Mood and affect appeared normal. He answered all questions appropriately. HEENT: Pupils are equal and reactive to light and accommodation. Extraocular movements are intact. The sclerae are anicteric. Neuro: Cranial nerves intact Lungs: Some crackles in the bases bilaterally. Good air movement. No expiratory wheezing. Normal respiratory effort. Cardiac: Heart demonstrates an irregular rhythm and normal rate. Normal S1 and S2. No murmurs on examination. Pulses: The patient has palpable radial pulses bilaterally that are equal in intensity Extremities: There was no evidence of hypoperfusion. There is no cyanosis or clubbing. Mild bilateral lower extremity edema- improved Skin: I did not appreciate any rashes on examination today. Results & Data Vital Signs (Past 12 Hours) Vital Signs Temp Pulse Pulse Resp BP Pulse Ox O2 Del Method 02/08/24 03:03 36.6 C 96 H 18 119/82 94 Room Air 02/07/24 23:52 36.5 C 88 18 128/82 94 Room Air 02/07/24 23:00 102 H Laboratory Results Abnormal Lab Results 02/08/24 05:26 Sodium 139 Potassium 3.9 Chloride 104 Carbon Dioxide 27 Anion Gap 8 BUN 20 Creatinine 0.93 Est Cr Clr Drug Dosing 116.4 Est GFR ( Amer) 100.9 Est GFR (Non-Af Amer) 87.1 BUN/Creatinine Ratio 21.5 H Glucose 101 H Calcium 9.0 Total Bilirubin 1.0 AST 17 ALT 68 H Alkaline Phosphatase 118 H Total Protein 6.3 Albumin 3.7 Globulin 2.6 Albumin/Globulin Ratio 1.4 PG Care Time/CCT Total # of Minutes Spent Total Time Spent with Patient: Total time spent is greater than 50% in coordination of care (as documented) at patient's floor/unit and/or counseling patient: Coding Level of Care Code 10313 SUB INP/OBS CARE 2/35MIN Diagnoses Atrial fibrillation with rapid ventricular response I48.91 SOB (shortness of breath) R06.02 Elevated troponin R79.89 Cardiomyopathy I42.9
[2024-02-08] MEDS: FUROSEMIDE 40 MG/4 ML VIAL IV SCH (09:40)
--- NOTE | 2024-02-08 11:12 | Hospitalist Progress Note ---
Date of Service February 08, 2024 Assessment & Plan (1) Atrial fibrillation with RVR: Plan: Acute systolic HF likely due to Afib with RVR A-fib with RVR With fluid accumulation worsening over the last 10 days, worsened orthopnea and swelling especially in the last 48 hours prior to admission. With weight gain of 12 pounds in 2 weeks - home regiment metoprolol is 100 mg a.m., 50 mg p.m - reports no missed doses - Chest x-ray with cardiomegaly, no acute findings - CBC unremarkable, Troponin elevated at 23.7, repeat stable - BNP elevated at 501 - Lasix increased to 40mg IV BID by cardiology 02/07 - not on home diuretic, reasses for discharge - Received IV metoprolol in the ER with still elevated Rates was started on cardizem drip - rates have improved with increased titration of Cardizem drip however ques tion will continue this given current EF - Echo: EF 35-40, global hypokinesis --> given this will consult cardiology cardiology consulted, appreciate recs - continue Cardizem drip, - metoprolol increased to 100mg BID - continue diuresis - recommend outpatient sleep study - plan for cardioversion AM 02/08 AM BMP (2) BPH (benign prostatic hyperplasia): Plan: per chart review, patient has had elevated PSA on multiple occasions but has refused to see urology Previously discontinued Flomax because it made him feel dizzy --> plan to restart Flomax with hold parameters based on SBP Patient endorses he can void but has a weaker stream than normal in the last few weeks Continue every shift postvoid residuals, if patient is having significant retention/PVR greater than 300 consider cath PVR has decreased with initiation of Flomax, no lightheadedness or dizziness. Will continue - recommend continuing at discharge with PM dosing time (3) Hypertension: Plan: continue home metoprolol Currently on Cardizem drip monitor blood pressures with the addition of Flomax - so far have remained stable (4) Transaminitis: Plan: - AST, ALT, alk phos all acutely elevated. Bilirubin is normal Patient reports that he has had intermittent right upper quadrant abdominal pain which he attributed to his fall but notes that food does make this worse and his bowel movements have been unusually light in color Denies fever, chills, sweats. He does not have a leukocytosis or fever. Stat ultrasound gallbladder ordered to evaluate for acute robina --> normal. Suggest 2/2 perfusion/congestion with volume overload and afib Improving Plan DVT prophylaxis: continue home Eliquis Disposition: continued inpatient stay,continued cardizem drip, plan for cardioversion tomorrow family updated at bedside Admission and Anticipated Discharge Date Admission Date: February 05, 2024 Supervising Physician Co-Signing Physician Notes Attending Attestation - Chart reviewed, care plan d/w TREVOR Muñoz. I agree w/ the benites components of her documentation. Ben Street MD Subjective Was able to shower - very happy about that + BM last night some fatigue, otherwise no symptoms. denies palpiations Afib 90-110s Review of Systems Review of Systems: All systems reviewed & are unremarkable except as noted in Subjective Physical Exam Physical Exam: General: NAD, VS as above Resp: normal respiratory effort, lungs clear to auscultation CV: A-fib, no murmur, Abd: normal bowel sounds, mild distention ,non tender, no hepatosplenomegaly Extremities: Moves all extremities, mild nonpitting edema in the lower extremities - slighlty worse than yesterday Neuro: A&O x3, Skin: intact, no lesions noted Results & Data Results & Data Vital Signs (Past 12 Hours) Vital Signs Temp Pulse Pulse Resp BP Pulse Ox O2 Del Method 02/08/24 10:59 107 H 02/08/24 09:00 36.6 C 97 H 16 120/71 97 Room Air 02/08/24 03:03 36.6 C 96 H 18 119/82 94 Room Air 02/07/24 23:52 36.5 C 88 18 128/82 94 Room Air Laboratory Results chemistry reviewed PG Care Time/CCT Total # of Minutes Spent Total Time Spent with Patient: Total time spent is greater than 50% in coordination of care (as documented) at patient's floor/unit and/or counseling patient: Coding Level of Care Code 10830 SUB INP/OBS CARE 3/50MIN Diagnoses Atrial fibrillation with RVR I48.91 BPH (benign prostatic hyperplasia) N40.0 Primary hypertension I10 Hypertension type: primary hypertension Transaminitis R74.01 (3) Hypertension Hypertension type: primary hypertension Qualified Code(s): I10 - Essential (primary) hypertension
--- NOTE | 2024-02-09 07:16 | Anesthesiology Consultation ---
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 Bus w/Anesthesia - Cody Pennington MD Height/Weight Height: 6 ft 2 in Weight: 127.6 kg Allergies Allergy/AdvReac Type Severity Reaction Status Date / Time Penicillins Allergy Mild Rash Verified 02/05/24 13:17 COURTNEY Inhibitors AdvReac Cough Verified 02/05/24 13:17 Medications Home Medications Medication Instructions Recorded Confirmed Last Taken omeprazole 20 mg capsule,delayed 20 mg PO QAM 03/12/19 02/05/24 02/05/24 release multivitamin 1 tab PO QAM 06/19/19 02/05/24 02/05/24 omega 2-scl-alq-fish oil 1,000 mg 1 cap PO QAM 06/19/19 02/05/24 09/05/19 (120 mg-180 mg) capsule (Fish Oil) apixaban 5 mg tablet (Eliquis) 5 mg PO BID #180 tabs 10/30/23 02/05/24 02/05/24 am atorvastatin 40 mg tablet 40 mg PO QAM 90 days #90 tabs 10/30/23 02/05/24 02/05/24 Super Beta-Prostate 1 dose PO QAM 02/05/24 02/05/24 02/05/24 ascorbic acid (vitamin C) 1,000 mg 1 g PO QAM 02/05/24 02/05/24 02/05/24 tablet (Vitamin C) metoprolol succinate 50 mg See Rx Instructions .Route .COMPLEX 02/05/24 02/05/24 02/05/24 tablet,extended release 24 hr am 2 tabs Active Medications Generic Name Dose Route Start Last Admin Trade Name Freq PRN Reason Stop Dose Admin Apixaban 5 mg 02/05/24 22:00 02/08/24 20:34 Apixaban 5 Mg Tablet PO 03/06/24 21:59 5 mg BID LEO Administration Ascorbic Acid 1,000 mg 02/06/24 09:00 02/08/24 12:05 Ascorbic Acid 500 Mg Tab PO 03/07/24 08:59 1,000 mg QAM LEO Administration Atorvastatin Calcium 40 mg 02/06/24 09:00 02/08/24 09:00 Atorvastatin 40 Mg Tab PO 03/07/24 08:59 40 mg QAM LEO Administration Docusate Sodium 100 mg 02/06/24 21:00 02/08/24 20:34 Docusate Sodium 100 Mg Cap PO 03/07/24 20:59 100 mg BID LEO Administration Fish Oil 1 gm 02/06/24 09:00 02/08/24 09:01 [place]-3 (Purified Fish Oil) 1 Gm Cap PO 03/07/24 08:59 1 gm QAM LEO Administration Furosemide 40 mg 02/08/24 09:00 02/08/24 20:34 Furosemide 40 Mg/4 Ml Vial IV 03/09/24 08:59 40 mg BID LEO Administration Metoprolol Succinate 100 mg 02/06/24 09:00 02/08/24 09:02 Metoprolol Succ 50mg Ext Rel Tab PO 03/07/24 08:59 100 mg QAM LEO Administration Metoprolol Succinate 100 mg 02/07/24 21:00 02/08/24 20:34 Metoprolol Succ 50mg Ext Rel Tab PO 03/08/24 20:59 100 mg QPM LEO Administration Multivitamins 1 tab 02/06/24 09:00 02/08/24 09:00 Multivitamin Tab PO 03/07/24 08:59 1 tab QAM LEO Administration Pantoprazole Sodium 40 mg 02/06/24 09:00 02/08/24 09:01 Pantoprazole 40 Mg Tab PO 03/07/24 08:59 40 mg QAM LEO Administration Tamsulosin HCl 0.4 mg 02/06/24 21:00 02/08/24 20:34 Tamsulosin Hcl 0.4 Mg Cap PO 03/07/24 20:59 0.4 mg HS LEO Administration Past Medical History Medical History Umbilical hernia BPH (benign prostatic hyperplasia) GERD (gastroesophageal reflux disease) Atrial flutter dx 1 month ago - [place] [facility] - follows w/ Dr. Tang - on Eliquis + metoprolol Shingles Hypertension Hypercholesterolemia Exercise / Class Metabolic Activity II 4-5 Yardwork/Stairs/Walk up hill Past Family History Family History Grandfather No problems noted. Aunt Coronary heart disease Uncle Coronary heart disease Myocardial infarction Father Hx of CABG Myocardial infarction Grandfather (Maternal) Prostate cancer Other No significant family history Denies family history of Ovarian cancer Breast cancer Colorectal cancer Past Surgical History Surgical History History of colonoscopy (09/07/19) Dr. Mason, 2 transverse colon and ascending colon polyps lymphoid aggregates, diverticulosis of sigmoid colon, nonbleeding internal hemorrhoids. Recheck 10 years History of ankle surgery Lt History of hand surgery BL History of tooth extraction Past Anesthesia History No Hx of Anesthesia Complications and No Family Hx of Anesthesia Complications History of PONV No Hx of PONV and No Hx of Motion Sickness Social History Smoking Status: Never smoker Do You Dip or Chew Tobacco: No Hx Alcohol Use: No Hx Substance Use: No substance use type: does not use Review of Systems denies fever/cough/ colds/ chest pain/ SOB/ BELKIS denies BELKIS Physical Exam Vital Signs Last Vital Signs Temp 36.8 C 02/09/24 02:57 Pulse 91 H 02/09/24 02:57 Resp 18 02/09/24 02:57 BP 117/90 02/09/24 02:57 Pulse Ox 94 02/09/24 02:57 O2 Del Method Room Air 02/09/24 02:57 ENMT Mouth: no TMJ abnormality and no dentition abnormality Thyromental Distance: > or= 3.5 Finger Breadths Mallampati Class: II Neck neck extension not limited Respiratory normal respiratory effort; no respiratory distress Auscultation: lungs clear to auscultation bilaterally Cardiovascular Rate/Rhythm: regular rate and regular rhythm Neurologic moves all extremities Psychiatric Orientation: alert and oriented x 3 Testing Laboratory Results 02/07/24 04:01 02/08/24 05:26 PT 11.7 Seconds (9.0-12.0) 02/05/24 14:57 INR 1.1 (0.9-1.1) 02/05/24 14:57 APTT 24 Seconds (21-31) 02/05/24 14:57 Urine Color Yellow 02/05/24 Unknown Urine Appearance Clear (Clear) 02/05/24 Unknown Urine pH 6.5 (4.5-7.5) 02/05/24 Unknown Ur Specific [place] 1.009 (1.000-1.030) 02/05/24 Unknown Urine Protein Negative (Negative) 02/05/24 Unknown Urine Glucose (UA) Negative (Negative) 02/05/24 Unknown Urine Ketones Negative (Negative) 02/05/24 Unknown Urine Nitrite Negative (Negative) 02/05/24 Unknown Ur Leukocyte Esterase Negative (Negative) 02/05/24 Unknown
--- NOTE | 2024-02-09 07:43 | Cardioversion ---
Date of Service February 09, 2024 PG Electrical Cardioversion Rp Electrical Cardioversion Report Procedure performed: Cardioversion Indication: Atrial fibrillation Staff rn clinician: Cody Pennington MD Procedure in detail: The patient was informed of the risks benefits and alternatives to the intended procedure. He understood such which proceed. He was taken to the cardiac catheterization suite holding area. A general anesthetic was administered by the Anesthesiology Service. Once appropriately anesthetized, the patient was cardioverted using 200 joules delivered in a biphasic fashion. This returned the patient to sinus rhythm. However, there was an early return to atrial fibrillation. During continued anesthesia the patient underwent a repeat delivery of energy at 200 joules. This returned him to a stable sinus rhythm. The patient tolerated procedure well, there were no immediate complications. Patient was neurologically intact subsequent to the procedure. Impression: Successful cardioversion from atrial fibrillation to normal sinus rhythm Coding Level of Care Code 59034 CARDIOVERSION, ELECTIVE Additional Codes Electrical Cardioversion Report ([id number])
--- NOTE | 2024-02-09 07:53 | Anesthesiology Progress Note ---
Date of Service February 09, 2024 Anesthesia Post Procedure Vital Signs Vital Signs: Temp Pulse Pulse Resp BP BP Pulse Ox 02/09/24 07:19 36.7 C 102 H 16 133/97 95 02/09/24 02:57 36.8 C 91 H 18 117/90 94 02/08/24 22:43 36.9 C 92 H 20 122/83 93 02/08/24 22:00 71 02/08/24 19:39 36.9 C 86 22 122/83 94 02/08/24 16:26 36.6 C 63 16 110/69 94 02/08/24 14:09 96 H 02/08/24 11:00 36.8 C 69 16 124/83 97 02/08/24 10:59 107 H 02/08/24 09:00 36.6 C 97 H 16 120/71 97 O2 Del Method 02/09/24 07:19 Room Air 02/09/24 02:57 Room Air 02/08/24 22:43 Room Air 02/08/24 22:00 02/08/24 19:39 Room Air 02/08/24 16:26 Room Air 02/08/24 14:09 02/08/24 11:00 Room Air 02/08/24 10:59 02/08/24 09:00 Room Air Transfer of Care Handoff Completed per policy Notes Mental Status: alert / awake / arousable and participated in evaluation Patient Amnestic to Procedure: Yes Nausea / Vomiting: adequately controlled Pain: adequately controlled Airway Patency, RR, SpO2: stable & adequate BP & HR: stable & adequate Hydration State: stable & adequate Anesthetic Complications: no major complications apparent and Pt Satisfied with anesthetic care
[2024-02-09] MEDS ORDERED: LIDOCAINE 2% 2 ML VIAL/AMP(20MG/ML) INFIL ONE (08:21)
[2024-02-09] MEDS ORDERED: PROPOFOL IV EMULSION 10 MG/ML 20 ML VIAL IV ONE (08:21)
[2024-02-09 09:56] LABS: BUN Creatinine Ratio 17.3 (10-20); Calcium 8.8 mg/dl (8.6-10.3); Creatinine Clr Calc Pharmacy 109.5 ml/min; Est GFR (African American) 94.7 ml/min; Est GFR (Non-African American) 81.7 ml/min; Potassium 3.7 mmol/L (3.5-5.1)
--- NOTE | 2024-02-09 10:53 | Cardiology Progress Note ---
Date of Service February 09, 2024 Assessment & Plan (1) Atrial fibrillation with rapid ventricular response: (2) SOB (shortness of breath): (3) Elevated troponin: (4) Cardiomyopathy: Plan 1. Atrial fibrillation: Cardioverted this morning. Initially he had an early return to atrial fibrillation but now seems to be maintaining sinus rhythm. I am concerned that he will have have recurrent atrial fibrillation in short order so will start oral amiodarone. My hope is that we can keep him in sinus rhythm long enough for recovery of the left ventricle. At that point consideration could be made for alternative rhythm control or adopting a rate control strategy. Amiodarone hopefully can be discontinued in a couple of months. He will continue systemic anticoagulation. I think we will continue his current dose of metoprolol watching his heart rate over the next few weeks as he starts on amiodarone. 2. Dyspnea on exertion: Improved. Lung examination is much better today. He has lost a significant amount of weight. 3. Cardiomyopathy: Hopefully related to elevated rates over couple of weeks. Return to sinus rhythm and normal rate. Will reassess LV function in a few weeks. Continue metoprolol succinate. 4. Elevated troponin: No ACS. No current plans for ischemic evaluation. 5. Mitral regurgitation: Mild. Admission and Anticipated Discharge Date Admission Date: February 05, 2024 Subjective This morning patient claimed he feeling well. He is ambulatory around his room and somewhat in the hallways. He denies significant breathing difficulty. Still no sense of palpitation. No chest pain. Subsequent to cardioversion he reported feeling somewhat better with less chest pressure. Review of Systems Review of Systems: Per HPI Physical Exam Physical Exam: The patient is alert and oriented. Mood and affect appeared normal. He answered all questions appropriately. HEENT: Pupils are equal and reactive to light and accommodation. Extraocular movements are intact. The sclerae are anicteric. Neuro: Cranial nerves intact Lungs: Lungs are clear. Rare crackle. No expiratory wheezing. Normal respiratory effort. Cardiac: Regular rhythm. No murmurs. Pulses: The patient has palpable radial pulses bilaterally that are equal in intensity Extremities: There was no evidence of hypoperfusion. There is no cyanosis or clubbing. Minimal edema Skin: I did not appreciate any rashes on examination today. Results & Data Vital Signs (Past 12 Hours) Vital Signs Temp Pulse Pulse Resp BP Pulse Ox O2 Del Method 02/09/24 08:38 36.6 C 77 18 130/87 96 Room Air 02/09/24 07:55 36.6 C 74 18 123/90 93 Room Air 02/09/24 07:19 36.7 C 102 H 16 133/97 95 Room Air 02/09/24 07:00 Room Air 02/09/24 06:00 132 H 02/09/24 02:57 36.8 C 91 H 18 117/90 94 Room Air Laboratory Results Abnormal Lab Results 02/09/24 08:18 Sodium 141 Potassium 3.7 Chloride 104 Carbon Dioxide 31 Anion Gap 6 BUN 17 Creatinine 0.98 Est Cr Clr Drug Dosing 109.5 Est GFR ( Amer) 94.7 Est GFR (Non-Af Amer) 81.7 BUN/Creatinine Ratio 17.3 Glucose 111 H Calcium 8.8 PG Care Time/CCT Total # of Minutes Spent Total Time Spent with Patient: Total time spent is greater than 50% in coordination of care (as documented) at patient's floor/unit and/or counseling patient: Coding Level of Care Code 38531 SUB INP/OBS CARE 2/35MIN Diagnoses Atrial fibrillation with rapid ventricular response I48.91 SOB (shortness of breath) R06.02 Elevated troponin R79.89 Cardiomyopathy I42.9
[2024-02-09] MEDS: AMIODARONE 200 MG TAB PO SCH (11:34)
--- NOTE | 2024-02-09 15:04 | Discharge Summary ---
Discharge Summary Date of Service February 09, 2024 Notes For Next Care Provider Successful cardioversion back to NSR 02/09/2024 Follow-up lab work in 1 week after discharge Follow-up appointment with Dr. Pennington in cardiology 02/27/2024 at 11:15 AM Medication Changes From Visit Start amiodarone 400 mg twice daily with meals. Take Lasix 20 mg daily. Metoprolol succinate increased to 100 mg twice daily. Continue taking Flomax (tamsulosin) 0.4 mg at bedtime. Admission HPI Per Admitting Provider Inder Valenzuela is a 63-year-old male with a past medical history of atrial flutter on apixaban, hypertension well-controlled on metoprolol, PVCs who was seen by his PCP for shortness of breath. Patient reports he did fall off a truck several weeks ago and injured his ribs, had an x-ray with his chiropractor which was normal however after the last 2 weeks has had progressive dyspnea rapidly worsening over the last 2 days. Endorses orthopnea. At the PCP he was found to have A-fib with RVR and was referred to the emergency department for further care. Lloyd is seen at the bedside with his . He reports that he fell out of a truck a few weeks ago and did have some back/flank pain which has improved. After this about 10 days ago he reports that he started to feel more tired on exertion and started to have weight gain in his legs. Over the last 7 days he has also had some shortness of breath laying flat, easier fatigue/exertional dyspnea, and tense leg swelling. He has not had chest pain at any point. He has no pain with deep breathing. He is compliant with his Eliquis and has not missed any doses. He is taking metoprolol 100 mg a.m., 50 mg p.m. and has not missed any doses of this; he also took his morning metoprolol today. He notes that he did run out of this last month. No sleep apnea. Reports he wakes up rested and does not have problems with morning fatigue outside of the last 2 weeks with his weight gain Medical History: Reviewed Medications: Reviewed Surgical History: Reviewed Family history: Reviewed Allergies: Reviewed Social History: No tobacco or alcohol use Code Status: Full code Admission Exam Per Admitting Provider General: A&Ox3. NAD. Cooperative. HEENT: Atraumatic, normocephalic. Vision and hearing is grossly intact Pulm: CTAB A&P. -wheezes, -rales, -rhonchi. Symmetrical chest rise. No increased work of breathing. No respiratory distress. Cardiac: irir, tachy 110-130s at time of assessment. Radial pulses intact and symmetrical. +JVD Abdominal: Softly distended. Bs present. NT. No guarding. Endorses right upper quadrant mild discomfort but that palpation does not seem to make this significantly worse/negative Valdez's. Ext: +bilat 1-2+ pitting edema Principal Dx & Hospital Course #1 = Principal Diagnosis (1) Atrial fibrillation with RVR: Acute systolic HF likely due to Afib with RVR A-fib with RVR With fluid accumulation worsening over the last 10 days, worsened orthopnea, and swelling - especially in the last 48 hours prior to admission. With weight gain of 12 pounds in 2 weeks. - home regiment metoprolol is 100 mg a.m., 50 mg p.m - reports no missed doses - Chest x-ray with cardiomegaly, no acute findings - CBC unremarkable, Troponin elevated at 23.7, repeat stable - BNP elevated at 501 - Lasix increased to 40mg IV BID by cardiology 02/07 - Echo 02/06/24: EF 35-40, global hypokinesis - Received IV metoprolol in the ER with still elevated Rates. Was started on Cardizem drip - Rates were improved with increased titration of Cardizem drip - Cardiology consulted - Metoprolol increased to 100mg BID - Continue diuresis - Recommend outpatient sleep study. - Patient cardioverted with Dr. Pennington 02/09/2024. - Patient was cardioverted once which returned the patient to NSR, however there was an early return to A-fib. Cardioversion was repeated, which returned patient to stable NSR. - Upon discharge from the hospital: -- Start amiodarone 400 mg twice daily with meals. -- Take Lasix 20 mg daily. -- Metoprolol succinate increased to 100 mg twice daily. -- Continue taking Flomax (tamsulosin) 0.4 mg at bedtime. -- Get lab work in 1 week. -- Follow-up with cardiology. Appointment with Dr. Pennington is scheduled for 02/27/2024 at 11:15 AM. (2) BPH (benign prostatic hyperplasia): Per chart review, patient has had elevated PSA on multiple occasions but has refused to see urology Previously discontinued Flomax because it made him feel dizzy --> Restart Flomax with hold parameters based on SBP Patient endorses he can void but has a weaker stream than normal in the last few weeks PVR has decreased with initiation of Flomax, no lightheadedness or dizziness. Will continue -- Continue Flomax at discharge with PM dosing time (3) Hypertension: Continue home metoprolol (4) Transaminitis: - AST, ALT, alk phos all acutely elevated. Bilirubin normal Patient reports that he has had intermittent right upper quadrant abdominal pain which he attributed to his fall but notes that food does make this worse and his bowel movements have been unusually light in color Denies fever, chills, sweats. He did not have a leukocytosis or fever. Stat ultrasound gallbladder ordered to evaluate for acute robina --> normal. Suggest 2/2 perfusion/congestion with volume overload and afib Improved Discharge Exam The patient is alert and oriented. Mood and affect appeared normal. He answered all questions appropriately. HEENT: Pupils are equal and reactive to light and accommodation. Extraocular movements are intact. The sclerae are anicteric. Neuro: Cranial nerves intact Lungs: Lungs are clear. Rare crackle. No expiratory wheezing. Normal respiratory effort. Cardiac: Regular rhythm. No murmurs. Pulses: The patient has palpable radial pulses bilaterally that are equal in intensity Extremities: There was no evidence of hypoperfusion. There is no cyanosis or clubbing. Minimal edema Skin: I did not appreciate any rashes on examination today. Updated Medication List Medication Instructions Recorded Confirmed Type omeprazole 20 mg capsule,delayed 20 mg PO QAM 03/12/19 02/05/24 History release multivitamin 1 tab PO QAM 06/19/19 02/05/24 History omega 4-fgz-lkd-fish oil 1,000 mg 1 cap PO QAM 06/19/19 02/05/24 History (120 mg-180 mg) capsule (Fish Oil) apixaban 5 mg tablet (Eliquis) 5 mg PO BID #180 tabs 10/30/23 02/05/24 Rx atorvastatin 40 mg tablet 40 mg PO QAM 90 days #90 tabs 10/30/23 02/05/24 Rx Super Beta-Prostate 1 dose PO QAM 02/05/24 02/05/24 History ascorbic acid (vitamin C) 1,000 mg 1 g PO QAM 02/05/24 02/05/24 History tablet (Vitamin C) amiodarone 200 mg tablet 400 mg (2 x 200 mg) PO BIDM #60 02/09/24 Rx tabs furosemide 20 mg tablet (Lasix) 20 mg PO DAILY #30 tabs 02/09/24 Rx metoprolol succinate 100 mg 100 mg PO BID #60 tabs 02/09/24 Rx tablet,extended release 24 hr tamsulosin 0.4 mg capsule 0.4 mg PO HS #30 caps 02/09/24 Rx Hospital Stay Data Consultations 02/05/24 16:27 ED Decision to Admit Stat 02/06/24 18:01 Consult Cardiology Routine Procedures Performed Operation Date: 02/09/24 07:15 Actual Procedures p Cardioversion - Cody Pennington MD Diagnostic Imagining Performed 02/05/24 17:52 US liver Stat Pending Results Patient Have Any Pending Studies at Discharge: No Discharge Instructions Given to Patient (Per Discharging Provider) Mr. Valenzuela, Julio Cesar were admitted to the hospital due to atrial fibrillation with rapid ventricular response (A-fib with RVR). You were admitted to the hospital because of atrial fibrillation with rapid ventricular response (A-fib with RVR). This caused an acute heart failure exacerbation, which resulted in the fluid accumulation, shortness of breath, and weight gain you noticed the 10 days prior to admission. Atrial fibrillation is a condition in which the heart beats in an irregular pattern. It is the most common abnormal heart rhythm. It is caused by a problem in the heart electrical pathways within the muscle of the upper chambers of the heart (atria). Because the atria are not martin normally, blood may pool in the atria instead of moving into the ventricles (the lower chambers of the heart). This can increase the risk for blood clots and stroke. Heart palpitations are a common symptom of atrial fibrillation. This is the feeling that your heart is fluttering, or beating too fast, hard, or irregular. When the heart beats too fast, it does not pump blood very well. This can cause other symptoms, such as anxiety, fatigue, shortness of breath, chest pain, dizziness, or fainting. You had a procedure called a cardioversion. This restored your heart to normal sinus rhythm. Upon discharge from the hospital: * Start amiodarone 400 mg twice daily with meals. This is an antiarrhythmic medication that prevents arrhythmias by relaxing overactive heart muscles. * Take Lasix 20 mg daily. This is a diuretic that will help remove excess fluid. * Your metoprolol succinate was increased to 100 mg twice daily. This is a beta-han that controls your heart rate. * Continue taking Flomax (tamsulosin) 0.4 mg at bedtime. This is an alpha- han that helps treat the symptoms of an enlarged prostate, which include difficulty urinating, and urinary frequency and urgency. * You will get lab work in 1 week. The order for the lab work has been placed, so if you would like to get your labs drawn at a [facility] facility, you will not need to bring in the lab slip. If you would like to get your labs drawn elsewhere, take the lab slip that is printed in your discharge papers with you. * Follow-up with cardiology. Your appointment with Dr. Pennington is scheduled for 02/27/2024 at 11:15 AM. Please return to the hospital if you experience any of the following: Shortness of breath or trouble breathing, passing out, uncontrolled bleeding, heartbeat that is irregular/very fast or slow compared with your normal heartbeat, chest pain or pressure, extreme drowsiness or confusion, numbness or weakness in your arms, legs, or face, or trouble speaking or seeing. It was a pleasure taking care of you while you were in the hospital, Kimberlyn Robbins PA-C Total Time Total Time Spent Total Time Spent (In Minutes): Greater than 30 minutes spent completing this discharge process including direct patient care, medication reconciliation, documentation, review of labs and im ages, and coordination of care. Coding Level of Care Code 40055 INP/OBS DISCH >30 MIN Diagnoses Atrial fibrillation with RVR I48.91 BPH (benign prostatic hyperplasia) N40.0 Primary hypertension I10 Hypertension type: primary hypertension Transaminitis R74.01
== END 2024-02-09 14:40 | disposition home or self-care (01) | DRG 308 ==
LOC: ED 14:05 → SUATTDRO 17:26 → 4W 17:26
DX: I48.91 Unspecified atrial fibrillation; Z88.8 Allergy status to other drugs, medicaments and biological substances; Z88.0 Allergy status to penicillin; E78.00 Pure hypercholesterolemia, unspecified; N40.1 Benign prostatic hyperplasia with lower urinary tract symptoms; I11.0 Hypertensive heart disease with heart failure; I50.21 Acute systolic (congestive) heart failure; Z79.01 Long term (current) use of anticoagulants; K21.9 Gastro-esophageal reflux disease without esophagitis; Z79.899 Other long term (current) drug therapy; I42.9 Cardiomyopathy, unspecified; R39.12 Poor urinary stream; R74.01 Elevation of levels of liver transaminase levels